=== PATIENT | female | born 1950 | race Caucasian/White ===

== ENCOUNTER 2022-12-20 18:37 | Inpatient (IN) | payer MEDICARE ==
[~2022-12-20] VITALS: Ht 160 cm; Wt 125.9 kg
[2022-12-20 18:40] VITALS: BP 117/88
--- NOTE | 2022-12-20 19:26 | NUR ---
to ct via [facility]
--- NOTE | 2022-12-20 19:26 | NUR ---
Pt report given to brigitte gee. Transfer of care at this time.
--- NOTE | 2022-12-20 19:27 | NUR ---
wound pictures taken, endorsed to brigitte gee and informed dr may
[2022-12-20 20:18] LABS: BASOPHILS % (AUTO) 0.1 % (0.0-2.0); EOSINOPHILS # (AUTO) 0.3 K/uL (0-0.4); EOSINOPHILS % (AUTO) 2.7 % (0.0-4.0); HEMATOCRIT 38.5 % (36-48); LYMPHOCYTES # (AUTO) 0.7 K/uL (2.5-16.5); LYMPHOCYTES % (AUTO) 6.4 % (20.5-51.1); MEAN CORPUSCULAR HEMOGLOBIN 30 pg (27-31); MEAN CORPUSCULAR HGB CONC 34 g/dL (33-37); MEAN CORPUSCULAR VOLUME 87.4 fL (80-94); MONOCYTES # (AUTO) 0.4 K/uL (0.8-1.0); MONOCYTES % (AUTO) 3.5 % (1.7-9.3); NEUTROPHILS # (AUTO) 10.1 K/uL (1.8-7.7); NEUTROPHILS % (AUTO) 87.3 % (42.2-75.2); PLATELET COUNT (AUTO) 202 K/uL (140-450); RED CELL DISTRIBUTION WIDTH 15.7 % (11.6-13.7); WHITE BLOOD COUNT (AUTO) 11.6 K/uL (4.8-10.8)
[2022-12-20] MEDS ORDERED: NACL 0.9% 1,000 ML IV ONE ×2 (20:35→23:10)
[2022-12-20 20:40] LABS: ANION GAP 18.3 (8-16); CARBON DIOXIDE 27.9 mmol/L (21-32); CHLORIDE 95 mmol/L (98-107); GLUCOSE 151 mg/dL (74-106); POTASSIUM 4.2 mmol/L (3.5-5.1); SODIUM SERUM 137 mmol/L (136-145)
[2022-12-20 20:44] LABS: CREATININE 5.9 mg/dL (0.6-1.3); UREA NITROGEN, BLOOD 137 mg/dL (7-18)
[2022-12-20 21:01] LABS: ALBUMIN 1.6 g/dL (3.4-5.0); ASPARTATE AMINOTRANSFERASE 33 U/L (15-37); FREE T4 (FREE THYROXINE) 0.54 ng/dL (0.76-1.46); THYROID STIMULATING HORMONE 9.41 uIU/mL (0.34-3.74); TOTAL BILIRUBIN 0.9 mg/dL (0.0-1.0)
[2022-12-20 21:07] LABS: ACETAMINOPHEN < 0.5 ug/ml (10-30)
--- NOTE | 2022-12-20 21:30 | NUR ---
STRAIGHT CATHED FOR UA, SENT TO LAB
[2022-12-20 21:46] LABS: BILIRUBIN,URINE 2+ (NEGATIVE); BLOOD, URINE 2+ (NEGATIVE); COLOR,URINE YELLOW (YELLOW); LEUKOCYTE ESTERASE ,URINE 2+ (NEGATIVE); NITRITE, URINE NEGATIVE (NEGATIVE); PH,URINE 5.5 (5.0-9.0); UGLUCOSE NEGATIVE (NEGATIVE)
[2022-12-20 21:47] LABS: CKMB RELATIVE INDEX 1.4 (0.0-2.5); CREATINE KINASE MB 6.9 ng/mL (0-3.6)
[2022-12-20 21:48] LABS: APPEARANCE,URINE HAZY (CLEAR)
[2022-12-20 21:53] LABS: RBC,URINE 0-5 /HPF (0-5); WBC,URINE TOO MANY TO COUNT /HPF (0-5)
[2022-12-20] MEDS ORDERED: cefTRIAXone 1,000 MG in DEXT 5% MINI-BAG PLUS 50 ML IV ONE (22:00)
[2022-12-20] MEDS ORDERED: cefTRIAXone 1,000 MG VIAL ONE (22:02)
[2022-12-20 22:16] LABS: BARBITURATE, URINE NEGATIVE ng/ml (NEG <=200); BENZODIAZEPINE, URINE NEGATIVE ng/mL (NEG <=200)
[2022-12-20 22:17] LABS: CANNABINOID, URINE NEGATIVE ng/mL (NEG <=50); COCAINE, URINE NEGATIVE ng/mL (NEG <=300); OPIATE, URINE NEGATIVE ng/mL (NEG <=2000); PHENCYCLIDINE SCREEN,URINE NEGATIVE ng/mL (NEG <=25)
[2022-12-21] VITALS (14 sets, daily range): BP systolic 60–156; BP diastolic 29–72
--- NOTE | 2022-12-21 01:00 | NUR ---
REPOSITIONED FOR COMFORT
--- NOTE | 2022-12-21 03:36 | NUR ---
REPORT CALLED TO MORGAN QUINN
--- NOTE | 2022-12-21 04:40 | NUR ---
TO [facility]ST VIA GURNEY, ATTACHED TO SANDWICH COUNTER ATTENDANT, ACCOMPANIED BY RETAIL MORTGAGE BANKER AND ERT
--- NOTE | 2022-12-21 05:03 | NUR ---
PT ARRIVED ON UNIT VIA GURNEY FROM ED TO ROOM 121A IN STABLE CONDITION (A+O*4, 3L O2 VIA NC, NO C/O PAIN). PT WAS ACCOMPANIED BY TWO HOSPITAL STAFF. PT REQUIRED ASSISTANCE W TRANSFER FROM GURNEY TO BED AND DID TOLERATE WELL. PT INSTRUCTED ON HOSPITAL PHONE AND NURSE/TV CONTROL BOX.
--- NOTE | 2022-12-21 07:45 | NUR ---
PATIENT NOTED TO BE SLOW TO RESPOND, WITH SHORTNESS OF BREATH, SKIN COLOR BLUISH COLD TO TOUCH. rESPONDS TO VERBAL STIMULI. BP78/43. [id number] R 15. NOTIFIED DR MORGAN NS BOLUS 1 LITER ORDERED AND STARTED. PATIENT CLOSELY MONITORED
[2022-12-21] MEDS ORDERED: NACL 0.9% 1,000 ML IV SCH ×3 (08:00→23:00)
--- NOTE | 2022-12-21 08:10 | NUR ---
BP 84/48 O2 SAT 925 O2 AT 3L/NC NS BOLUS ONGOING RESPONDS VERBALLY
[2022-12-21] MEDS ORDERED: AZITHROMYCIN 250 MG TAB PO SCH (09:00)
--- NOTE | 2022-12-21 09:32 | NUR ---
PT ALERT AND ABLE TO AGREE FOR AN UPDATE TO BE PROVIDED TO TRUDY HEREDIA, PTS NICOLE. PHONE NUMBER, . ALL QUESTIONS ANSWERED AT THIS TIME.
--- NOTE | 2022-12-21 10:07 | NUR ---
DR ROSS AND BRIELLE AT BEDSIDE, NEW BLOOD PRESSURE IS 86/36 MAP OF 56, RESPIRATORY RATE OF 24, DEEP ON 3L NC SATING AT 94%. NEW ORDERS FOR ICU TRANSFER, STAT ABG, AND PICC INSERTION. JASBIR MARTIN PLACED ORDERS.
--- NOTE | 2022-12-21 10:16 | NUR ---
PATIENT HAS BEEN SCREENED AND CATEGORIZED HIGH NUTRITION RISK. PATIENT WILL BE SEEN WITHIN 1-2 DA[address] OF [address]ION. [address]
[2022-12-21 10:22] LABS: BASOPHILS % (AUTO) 0.2 % (0.0-2.0); EOSINOPHILS # (AUTO) 0.1 K/uL (0-0.4); EOSINOPHILS % (AUTO) 0.9 % (0.0-4.0); HEMATOCRIT 34.7 % (36-48); HEMOGLOBIN 11.4 g/dL (12.0-16.0); LYMPHOCYTES # (AUTO) 0.8 K/uL (2.5-16.5); LYMPHOCYTES % (AUTO) 5.4 % (20.5-51.1); MEAN CORPUSCULAR HEMOGLOBIN 30 pg (27-31); MEAN CORPUSCULAR HGB CONC 33 g/dL (33-37); MEAN CORPUSCULAR VOLUME 90.9 fL (80-94); MONOCYTES # (AUTO) 0.7 K/uL (0.8-1.0); MONOCYTES % (AUTO) 4.4 % (1.7-9.3); NEUTROPHILS # (AUTO) 13.2 K/uL (1.8-7.7); NEUTROPHILS % (AUTO) 89.1 % (42.2-75.2); PLATELET COUNT (AUTO) 165 K/uL (140-450); RED BLOOD CELL COUNT(AUTO) 3.82 MIL/uL (4.20-5.40); RED CELL DISTRIBUTION WIDTH 16.2 % (11.6-13.7); WHITE BLOOD COUNT (AUTO) 14.8 K/uL (4.8-10.8)
[2022-12-21 10:33] LABS: ALBUMIN 1.8 g/dL (3.4-5.0); ANION GAP 18.5 (8-16); ASPARTATE AMINOTRANSFERASE 27 U/L (15-37); CARBON DIOXIDE 26.5 mmol/L (21-32); CHLORIDE 100 mmol/L (98-107); GLUCOSE 145 mg/dL (74-106); SODIUM SERUM 141 mmol/L (136-145)
[2022-12-21] MEDS ORDERED: NOREPINEPHRINE 4 MG/4 ML VIAL IV ONE (10:34)
[2022-12-21] MEDS ORDERED: NOREPINEPHRINE 4 MG in DEXTROSE 5% 250 ML IV PRN (10:35)
[2022-12-21] MEDS: NOREPINEPHRINE 16 MG in DEXTROSE 5% 250 ML IV PRN ×2 (10:35→15:20)
--- NOTE | 2022-12-21 10:37 | NUR ---
PT WAS TRANSFERRED TO ICU BED 5, FULL REPORT GIVEN TO MIKE MORA. PT HAS NO BELONGINGS, STATES SHE DID NOT BRING ANYTHING FROM HOME. PTS NIECE, TRUDY HAS BEEN CALLED AND UPDATED REGARDING TRANSFER.
[2022-12-21 10:38] LABS: CREATININE 5.6 mg/dL (0.6-1.3); UREA NITROGEN, BLOOD 145 mg/dL (7-18)
--- NOTE | 2022-12-21 10:38 | NUR ---
RECEIVED REPORT FROM OFFICIAL COURT INTERPRETER [place], FOR CONTINUITY OF CARE. PT A/OX4 AND ABLE TO COMMUNICATE NEEDS, 4L NC. 20G IV TO RAC SALINE LOCK. WEAKNESS THROUGHOUT. INCONTINENT OF BLADDER. STANDARD PRECAUTION. CALL LIGHT WITHIN REACH. BED LOCKED AND IN LOWEST POSITION.
--- NOTE | 2022-12-21 11:00 | NUR ---
RECEIVED PHONE CALL FROM SISTER IN LAW AYAD CHAYO [phone] AND UPDATED ON POC.
--- NOTE | 2022-12-21 11:15 | NUR ---
PHONE CALL TO DR CHAVIRA TO UPDATE ON PT. ORDERS RECEIVED. OK FOR PICC INSERTION.
[2022-12-21 11:55] LABS: PROTHROMBIN TIME 14.2 secs (10.8-13.4)
[2022-12-21 12:00] LABS: CREATININE 5.5 mg/dL (0.6-1.3)
[2022-12-21] MEDS ORDERED: VASOPRESSIN 20 UNITS in NACL 0.9% 250 ML IV SCH (13:05)
--- NOTE | 2022-12-21 13:26 | NUR ---
12/21/22 RD INITIAL ASSESSMENT COMPLETED PLEASE REFER TO NUTRITION ASSESSMENT UNDER CARE ACTIVITY FOR ESTIMATED NUTRITIONAL NEEDS. 1. MONITOR NPO STATUS 2. WHEN/IF MEDICALLY APPROPRIATE TO START PO DIET, RECOMMEND RENAL, [id number] DIET WITH LUANA BID PER RX PROTOCOL 3. MONITOR NUTRITION-RELATED LAB VALUES 4. CONSULT RD PRN 5. RD TO FOLLOW-UP 2-3 DAYS, HIGH RISK [address]
--- NOTE | 2022-12-21 13:30 | NUR ---
INSERTED 16FR CARIAS CATHETER WITH STERILE TECHNIQUE. IMMEDIATE RETURN OF CLOUDY YELLOW URINE.
--- NOTE | 2022-12-21 13:40 | NUR ---
PICC MORGAN PERDOMO AT BEDSIDE. INSERTED PICC TO [facility] AND CONFIRMED BY XRAY, OK TO USE PICC.
--- NOTE | 2022-12-21 13:54 | NUR ---
PT A/OX4, REFUSES TO CONSENT TO THORACENTESIS. EDUCATED ON RISKS AND BENEFITS. OFFERED EDUCATION/CLARIFICATION FROM MD. PT REFUSED. MD NOTIFIED. NO NEW ORDERS AT THIS TIME.
[2022-12-21] MEDS: PIPERACILLIN/TAZOBACTAM 2.25 GM in DEXTROSE 5% 50 ML IV SCH ×2 (14:05→21:37)
[2022-12-21 14:44] LABS: APPEARANCE,URINE CLOUDY (CLEAR); BILIRUBIN,URINE 1+ (NEGATIVE); BLOOD, URINE 3+ (NEGATIVE); COLOR,URINE YELLOW (YELLOW); LEUKOCYTE ESTERASE ,URINE 3+ (NEGATIVE); NITRITE, URINE NEGATIVE (NEGATIVE); UGLUCOSE NEGATIVE (NEGATIVE)
--- NOTE | 2022-12-21 15:00 | NUR ---
HAI VISITING AT BEDSIDE. STATES SHE IS "LIKE A DAUGHTER". WHEN DISCUSSING POINT OF CONTACT FOR MEDICAL DECISION MAKING, PT STATED SHE WOULD LIKE AYAD TO BE PERSON TO NOTIFY AND MAKE DECISIONS.
[2022-12-21 15:03] LABS: RBC,URINE TOO NUMEROUS TO COUN /HPF (0-5)
[2022-12-21 15:04] LABS: TRICHOMONAS,URINE None Seen /HPF (None Seen); WBC,URINE TOO MANY TO COUNT /HPF (0-5); YEAST,URINE None Seen /HPF (None Seen)
[2022-12-21] MEDS ORDERED: VASOPRESSIN 20 UNITS/ML VIAL ONE (15:54)
[2022-12-21] MEDS: VASOPRESSIN 20 UNITS in NACL 0.9% 250 ML IV SCH (16:04)
[2022-12-21] MEDS ORDERED: PHENYLEPHRINE 10 MG in NACL 0.9% 250 ML IV PRN (16:50)
--- NOTE | 2022-12-21 19:30 | NUR ---
ENDORSED BEDSIDE REPORT TO GONZALO, DATA PROCESSING CLERK RN, FOR CONTINUITY OF CARE.
[2022-12-21] MEDS: HYDROCORTISONE NA SUCC 100 MG/2 ML VIAL IV SCH (21:37)
--- NOTE | 2022-12-21 22:10 | NUR ---
DR ROSS CONTACTED TO REPORT MAXED OUT LEVO A ND VASO FOR A POSSIBLE FLUID CHALLENGE BASE EXCESS IS -7.9. HE AGREED AND ORDERED 1 LITER NS
[2022-12-21] MEDS ORDERED: PHENYLEPHRINE 10 MG/ML VIAL ONE (22:35)
[2022-12-22] VITALS (28 sets, daily range): BP systolic 80–144; BP diastolic 44–91
[2022-12-22] MEDS: NACL 0.9% 1,000 ML IV SCH ×3 (00:10→02:12)
[2022-12-22] MEDS ORDERED: PHENYLEPHRINE 10 MG/ML VIAL ONE ×2 (02:42→05:01)
[2022-12-22] MEDS: VASOPRESSIN 20 UNITS in NACL 0.9% 250 ML IV SCH ×2 (02:57→18:13)
[2022-12-22] MEDS: PIPERACILLIN/TAZOBACTAM 2.25 GM in DEXTROSE 5% 50 ML IV SCH ×3 (05:00→21:33)
[2022-12-22] MEDS: HYDROCORTISONE NA SUCC 100 MG/2 ML VIAL IV SCH ×3 (05:00→21:33)
--- NOTE | 2022-12-22 07:00 | NUR ---
Recieved report from MORGAN Yeboah. Patient resting in bed with eyes closed Bipap present; RR 26, VT 344, PIP 11, VE 8.3, Peep 8, O2 55%. Patient appears to have irregular and labored breathing, currently saturating at 97%. Lung sounds diminished bilaterally. Patient is currently ST; S1 and S2 auscultated. Pulses +1 BUE/BUE. Cap refill <2 BUE, >2 BLE dusky color noted to right toes, pressure reducing boot strap loosened. +4 pitting edema to the BLE, +3 non pitting to BUE. Skin tear to left FA noted near edge of BP cuff. Bowel sounds hypoactive. all quadrants. Mazariegos catheter draining dark yellow cloudy urine. PICC line to right upper arm infusing without issue. Junior-synephrine running at 50mcg/min, Levophed running at 22mcg/min, vasopressin running at 0.03units/min through central line. RT and x3 nurses, x1 SENIOR TECHNICAL MANAGER moved pt bed to room 7 d/t malfunctioning monitoring equipment. Will continue to monitor.
--- NOTE | 2022-12-22 07:34 | NUR ---
WAS HAVING CONNECTION ISSUES WITH HEART MONITOR AND BP SO I HAD TO CONNECT PATIENT TO ZOLL MONITOR FOR HEART MONITOR READING AND BP READING. ACCOUNTS CLERK WAS MADE AWARE
[2022-12-22] MEDS ORDERED: PHENYLEPHRINE 40 MG in NACL 0.9% 250 ML IV PRN (08:30)
[2022-12-22] MEDS: AZITHROMYCIN 500 MG in DEXTROSE 5% 250 ML IV SCH (09:02)
--- NOTE | 2022-12-22 09:22 | NUR ---
Received patient in ICU bed 5 on BIPAP 12/8 R18 55%, SPO2 97%. No respiratory distress noted at this time. Patient awake. Patient was transported on BIPAP to ICU bed 7 on BIPAP, no adverse events occurred. ABG results given to MD Joy in person. New BIPAP orders given, keep patient on BIPAP and increase to 18/8. Will continue to monitor.
--- NOTE | 2022-12-22 09:25 | NUR ---
here to see pt. New orders given. See orders for detail. Orders noted and carried out.
[2022-12-22 09:26] LABS: BASOPHILS % (AUTO) 0.1 % (0.0-2.0); HEMATOCRIT 36.4 % (36-48); LYMPHOCYTES # (AUTO) 0.3 K/uL (2.5-16.5); LYMPHOCYTES % (AUTO) 1.5 % (20.5-51.1); MEAN CORPUSCULAR HEMOGLOBIN 30 pg (27-31); MEAN CORPUSCULAR HGB CONC 33 g/dL (33-37); MEAN CORPUSCULAR VOLUME 89.4 fL (80-94); MONOCYTES # (AUTO) 0.4 K/uL (0.8-1.0); MONOCYTES % (AUTO) 2.5 % (1.7-9.3); NEUTROPHILS # (AUTO) 16.5 K/uL (1.8-7.7); NEUTROPHILS % (AUTO) 95.9 % (42.2-75.2); PLATELET COUNT (AUTO) 203 K/uL (140-450); RED BLOOD CELL COUNT(AUTO) 4.07 MIL/uL (4.20-5.40); RED CELL DISTRIBUTION WIDTH 16.1 % (11.6-13.7); WHITE BLOOD COUNT (AUTO) 17.2 K/uL (4.8-10.8)
[2022-12-22 09:28] LABS: CARBON DIOXIDE 20.5 mmol/L (21-32); CHLORIDE 100 mmol/L (98-107); GLUCOSE 240 mg/dL (74-106); POTASSIUM 4.5 mmol/L (3.5-5.1); SODIUM SERUM 141 mmol/L (136-145)
[2022-12-22] MEDS: SODIUM BICARBONATE 8.4% PFS 50 MEQ/50 ML SYR IVP SCH ×2 (09:31→10:41)
[2022-12-22 09:33] LABS: CREATININE 5.5 mg/dL (0.6-1.3); UREA NITROGEN, BLOOD 127 mg/dL (7-18)
[2022-12-22 09:34] LABS: MAGNESIUM 2.2 mg/dL (1.8-2.4)
[2022-12-22] MEDS: SODIUM BICARBONATE 8.4% 150 MEQ in DEXTROSE 5% 1,000 ML IV SCH (10:38)
[2022-12-22] MEDS: BLOOD GLUCOSE MONITORING 1 DEV DEV FS SCH ×2 (12:02→18:14)
[2022-12-22] MEDS: INSULIN LISPRO SLIDING SCALE 100 UNITS/ML VIAL SUBQ PRN ×2 (12:09→18:13)
[2022-12-22] MEDS ORDERED: NOREPINEPHRINE 4 MG/4 ML VIAL IV ONE (13:21)
[2022-12-22] MEDS: NOREPINEPHRINE 16 MG in DEXTROSE 5% 250 ML IV PRN (13:35)
--- NOTE | 2022-12-22 17:30 | NUR ---
PATIENT STATES THAT SHE IS UNSURE OF DIALYSIS AND DOESN'T KNOW IF SHE WANTS DIALYSIS. DR. CHAVIRA SPOKE WITH PATIENT AND EXPLAINED RISKS AND BENEFITS OF DIALYSIS. PT REMAINS UNSURE AT THIS TIME.
--- NOTE | 2022-12-22 18:00 | NUR ---
PT CONTINUES TO STATE THAT SHE IS UNSURE IF SHE WOULD LIKE TO UNDERGO DIALYSIS [place].
--- NOTE | 2022-12-22 19:25 | NUR ---
notified of TSH results. New orders given. See orders for detail. Orders noted and carried out.
--- NOTE | 2022-12-22 19:30 | NUR ---
Report endorsed to MORGAN Camp.
--- NOTE | 2022-12-22 20:00 | NUR ---
PATIENT STABLE VITALS SIGNS IN NORMAL LIMITS DEVAN ON BIPAP AT 40 % FIO2 ORAL CARE WAS PERFORMED PATIENT TURN TO THE RIGHT SIDE
--- NOTE | 2022-12-22 20:05 | NUR ---
1900 LOWERED FIO2 TO 40% ON BIPAP
[2022-12-23] VITALS (28 sets, daily range): BP systolic 90–132; BP diastolic 40–70
--- NOTE | 2022-12-23 | NUR ---
PATIENT STABLE VITALS SIGNS IN NORMAL LIMITS ALERT SEEMS LIKE CONFUSED SR 76 ON MONITOR BATH AND BED CHANGE WAS DONE PATIENT TOLERATE THE CARE FAIR
[2022-12-23] MEDS: INSULIN LISPRO SLIDING SCALE 100 UNITS/ML VIAL SUBQ PRN ×4 (01:34→18:44)
[2022-12-23] MEDS: SODIUM BICARBONATE 8.4% 150 MEQ in DEXTROSE 5% 1,000 ML IV SCH ×2 (02:15→17:35)
--- NOTE | 2022-12-23 03:23 | NUR ---
0320 PATIENT WANTED OFF BIPAP. TOOK OFF BIPAP AND PLACED PT ON 3LNC. WILL MONITOR PATIENT
[2022-12-23] MEDS: PIPERACILLIN/TAZOBACTAM 2.25 GM in DEXTROSE 5% 50 ML IV SCH ×3 (05:25→22:36)
[2022-12-23] MEDS: HYDROCORTISONE NA SUCC 100 MG/2 ML VIAL IV SCH ×3 (05:25→22:35)
[2022-12-23] MEDS: BLOOD GLUCOSE MONITORING 1 DEV DEV FS SCH ×4 (06:22→18:43)
[2022-12-23] MEDS: LEVOTHYROXINE SODIUM 100 MCG VIAL IV SCH ×2 (06:23→07:03)
--- NOTE | 2022-12-23 06:35 | NUR ---
PATIENT STABLE VITALS SIGNS IN NORMAL LIMITS NOT COMPLAINING OF PAIN AT THIS TIME SR 78 ON MONITOR BED CHANGE AND PATIENT CLEAN PERFORMED PATIENT TOOK OFF OF BIPAP BY RESPIRATORY THERAPY DING WELL AND STABLE
--- NOTE | 2022-12-23 06:45 | NUR ---
WE DONT HAVE LEVOTHYROXINE IV I CHECK WITH GUNJAN WHELAN AND NATALIE IN ER BUT WE COULDNT FIND IT
[2022-12-23] MEDS: PANTOPRAZOLE 40 MG INJ VIAL IVP SCH (09:00)
[2022-12-23] MEDS: AZITHROMYCIN 500 MG in DEXTROSE 5% 250 ML IV SCH (09:00)
[2022-12-23] MEDS: NOREPINEPHRINE 16 MG in DEXTROSE 5% 250 ML IV PRN ×2 (10:13→22:43)
[2022-12-23 11:37] LABS: BASOPHILS % (AUTO) 0.1 % (0.0-2.0); EOSINOPHILS % (AUTO) 0.2 % (0.0-4.0); HEMATOCRIT 32.6 % (36-48); HEMOGLOBIN 10.6 g/dL (12.0-16.0); LYMPHOCYTES # (AUTO) 0.6 K/uL (2.5-16.5); LYMPHOCYTES % (AUTO) 2.9 % (20.5-51.1); MEAN CORPUSCULAR HEMOGLOBIN 30 pg (27-31); MEAN CORPUSCULAR HGB CONC 33 g/dL (33-37); MEAN CORPUSCULAR VOLUME 91.3 fL (80-94); MONOCYTES # (AUTO) 0.6 K/uL (0.8-1.0); MONOCYTES % (AUTO) 2.9 % (1.7-9.3); NEUTROPHILS # (AUTO) 18.2 K/uL (1.8-7.7); NEUTROPHILS % (AUTO) 93.9 % (42.2-75.2); PLATELET COUNT (AUTO) 149 K/uL (140-450); RED BLOOD CELL COUNT(AUTO) 3.57 MIL/uL (4.20-5.40); RED CELL DISTRIBUTION WIDTH 16.3 % (11.6-13.7); WHITE BLOOD COUNT (AUTO) 19.4 K/uL (4.8-10.8)
[2022-12-23 12:09] LABS: ANION GAP 13.5 (8-16); CARBON DIOXIDE 30.3 mmol/L (21-32); CHLORIDE 98 mmol/L (98-107); GLUCOSE 310 mg/dL (74-106); POTASSIUM 3.8 mmol/L (3.5-5.1); SODIUM SERUM 138 mmol/L (136-145)
[2022-12-23 12:11] LABS: UREA NITROGEN, BLOOD 129 mg/dL (7-18)
--- NOTE | 2022-12-23 12:21 | NUR ---
DC PLANN[age] YRS OLD FEMALE PATIENT WAS ADMITTED FROM HOME WITH A DX OF ACUTE RESPIRATORY FAILURE SECONDARY RHABDOMYOLYSIS, UTI AND FRAN. PATIENT HAS A HX OF COPD, DM AND HYPOTHYROIDISM CXR SHOWED MODERATE RT PLEURAL EFFUSION. RAPID COVID TEST NEGATIVE. ON BIPAP FIO2 40% . ADMINISTERED IVF, SODIUM BICARB AN LEVOPHED DRIP. CONSULTED WITH PULMO, NEPHRO AND ID. DC PLAN PER PATIENT RESPOND TO THE TREATMENT. CM TO FOLLOW Addendum: 12/24/22 at 1244 by Faye Stevenson RN DC PLANNING: PER ICU NURSE DR ANDERSON SPOKE WITH PATIENT AND AGREED TO PROCEED WITH THORACENTESIS. DR EDWARDS ORDERED CONSENT FOR SACRAL DEBRIDEMENT. CM TO FOLLOW Addendum: 12/26/22 at 1246 by Faye Stevenson RN DC PLANNING: DR EDWARDS PERFORMED EXCISIONAL SACRAL DEBRIDEMENT ON 12/24 . S/P INTUBATION PENDING CHEST TUBE PLACEMENT BY SURGEON DR EDWARDS. ON PROPOFOL AND SODIUM BICARB DRIPS. CONTINUED IVF, IV ABX ZOSYN AND AZITHROMYCIN. NEPHRO ,ID, SURGEON AND PULMO ARE FOLLOWING. CM TO FOLLOW
[2022-12-23] MEDS: NYSTATIN POW 100 MU/GM 15 GM BTL TP SCH (13:00)
[2022-12-23] MEDS: HYDRAGUARD CREAM TP SCH (13:00)
[2022-12-23] MEDS: Z-GUARD PASTE TP SCH (13:00)
[2022-12-23] MEDS: THERAHONEY GEL 42.5 GM TP SCH (13:00)
--- NOTE | 2022-12-23 13:50 | NUR ---
WOUND CARE EVALUATION NOTE: SKIN ASSESSMENT DONE WITH PRIMARY RN HAILEY ON THIS 72 Y/O PT ADMITTED WITH INITIAL DX WEAKNESS, S/P FALL. PAST MEDICAL HX INCLUDES HX COPD, DM AND HYPOTHYROIDISM. PT ADMITTED WITH PRESSURE INJURIES. ALL ABOVE INFORMATION OBTAINED FROM ADMISSION H&P AND CHART REVIEW. PT IS AWAKE, RESPONSE TO HER NAME WHEN NAME WAS CALLED, SKIN IS WARM, MOIST AND THIN, EASILY TO TORN, BILATERAL LOWER EXTREMITY ELEPHANTIASIS LEGS WITH +3 EDEMA. DORSAL PEDAL PULSES PRESENT AND DIMINISHES. CAPILLARY REFILLED UNABLE TO ASSESS DUE CHRONIC FUNGAL NAILS X 10 TOES. F/C PATENT WITH MODERATE AMOUNT ERNA COLOR URINE OUT PUT OBSERVED. WOUND CX OBTAINED. PLAN OF CARE DISCUSSED WITH PRIMARY RN SERGIO AND CHARGE NURSE VEL. POC DISCUSSED WITH DR. DEE WITH SURGEON DEBRIDEMENT RECOMMENDATIONS. 12/22/2022 LABS: WBC 17.2, ALBUMIN 1.8, GLUCOSE 240, PT/INR 14.2/1.38 COMORBIDITIES RELATED TO DELAY WOUND HEALING, FURTHER SKIN BREAKS AND UN-AVOIDABLE PRESSURE INJURY: ADVANCE AGE, INFECTION, DM, SEVERELY OBESE, ACUTE HYPOXEMIC DECREASE TISSUE PERFUSION, TISSUE ISCHEMA, DECREASE MOBILITY AND FUNCTIONAL ABILITIES, AND HOB ELEVATED THE MAJORITY OF TIMES DUE TO MEDICAL REASONS. INTEGUMENTARY: -LIPS AND ORAL MUCOSA DRY AND CLEAN. SKIN INTACT. -UN-STAGEABLE PRESSURE INJURY TO LEFT EAR WITH BLOODY INTACT BLISTERING DENUDED SKIN 2.5X1CM -UPPER EXTREMITIES WITH MULTIPLE ECCHYMOSIS WITH LARGEST FROM LEFT FOREARM TO RIGHT FOREARM 10X4CM ERYTHEMA, SKIN INTACT AND LEFT FOREARM TO DORSAL HAND 23X8CM WITH +2 EDEMA, MULTIPLE RED STRIPES DOROTEO POSSIBLE FROM BLOOD PRESSURE CUFF. CUFF REMOVED TO LOWER EXTREMITIES -LEFT SHOULDER 2 SKIN TEARS SITE #1 WOUND BED RED AND MOIST WITH 2X1.5X0.2CM, NO ODOR, NO S/S OF INFECTION AND SITE #2 WOUND BED RED AND MOIST WITH 2X1.5X0.2CM, NO ODOR, NO S/S OF INFECTION AND CHARU WOUND SKIN ECCHYMOSIS -INTERTRIGO TO UNDER BREASTS FOLDS AND ABDOMINAL FOLDS, SKIN RED, MOIST MULTIPLE SUPERFICIAL EROSIONS -MOISTURE ASSOCIATED SKIN DAMAGE(MASD) TO: B/L GROINS, MEDIAL THIGHS AND POSTERIOR THIGHS TO CHARU-ANAL, SKIN REDNESS, MOIST, PEELING -PRESSURE INJURY UN-STAGEABLE THORACIS SPINAL AREA MULTIPLE BLISTERING SKIN WITH LARGEST BLOODY BLISTERING SKIN 3X5CM, CHARU-WOUND SKIN ECCHYMOSIS -PRESSURE INJURY UN-STAGEABLE, SACROCOCCYX EXTENDED TO LEFT AND RIGHT BUTTOCKS INFECTED WOUND WITH 07P09O0.3CM, WOUND BED MORE THAN 20% DEEP TISSUE INJURY, GREATER THAN 75% BLACK, BROWN, YELLOW SLOUGH AND DENUDED INFECTED TISSUE, MODERATE AMOUNT PURULENT DRAINAGE, STRONG ODOR, WOUND EDGE FLAT, IRREGULAR SHAPE, CHARU-WOUND DENUDED SKIN MOIST YELLOW SLOUGH WITH NON-BLANCHABLE REDNESS WHICH INDICATED FURTHER DAMAGE -LEFT LE CELLULITIS 15X6CM ERYTHEMA, +3 EDEMA, WITH A DRY ABRASION, CHARU-WOUND SKIN DRY INTACT. -RIGHT LE CELLULITIS 14X6CM ERYTHEMA, +3 EDEMA, CHARU-WOUND SKIN DRY INTACT. -BILATERAL HEELS BLANCHABLE REDNESS, HEEL PROTECTORS WITH OFFLOADING RECOMMENDATIONS: -APPLY SKIN PREP WIPE TO LEFT EAT BID WITH OFFLOADING -LUMBAR SPINAL BLISTERING SKIN, CLEAN WITH NS, PAT DRY, APPLY OIL EMULSION DRESSING COVER WITH DRY DRESSING QD AND PRN IF SOILING -APPLY THIN LAYER OF Z GUARD TO R/L GROINS EXTENDED TO PERINEUM MEDIAL THIGHS, POSTERIOR THIGHS AND CHARU ANAL BID AND PRN IF SOILING -APPLY NYSTATIN POWDER TO BREAST FOLDS AND LOWER ABDOMINAL FOLDS BID AND PRN IF SOILING -CLEANSE LEFT SHOULDER WOUNDS, SACRALCOCCYX AND BUTTOCKS WITH WOUND CARE SOLUTION, PAT DRY, APPLY THERAHONEY GEL WITH OIL EMULSION DRESSING, COVER WITH DRY DRESSING QD AND PRN IF SOILING -PRESSURE REDISTRIBUTION SURFACE THERAPY OSMIN ISOFLEX NADINE MATTRESS -POSITIONING: TURN AND REPOSITION PATIENT Q 2H OR SOONER USE PILLOWS TO KEEP BONY PROMINENCES FROM DIRECT CONTACT WITH SURFACES USE REPOSITIONING WEDGES TO PROVIDE 30-DEGREE ANGLE FOR SIDE LYING POSITIONS OFFLOADING OR FOAM DRESSING TO ALL TUBING TO PREVENT MEDICAL DEVICES RELATED PRESSURE INJURY -RE-EVALUATING AND MANAGING INCONTINENCE MONITOR SKIN CONDITION DURING POSITION CHANGE DO NOT MASSAGE REDNESS, BONY PROMINENCES, DO NOT USE DONUT-TYPE DEVICES FREQUENT CHARU-CARE AND PROVIDE BARRIER CREAMS PRN IF SOILING MOISTURE CONTROL BY OFFER BED LYNN/URINAL /ABSORBENT PAD TO WICK AND HOLD MOISTURE. KEEP SKIN DRY AND PROTECT FROM FRICTION -MANAGE FRICTION/SHEAR/MOBILITY KEEP HOB AT THE LOWEST LEVEL OF ELEVATION NO MORE THAN 30 DEGREES UNLESS OTHERWISE CONTRAINDICATED USE LIFT SHEET OR TRANSFER DEVICE TO MOVE PATIENT AND PREVENT LATERAL SHEER. CONSIDER TRAPEZE IF APPROPRIATE PROTECT HEELS, ELBOWS BONY PROMINENCES WITH SKIN BERRIES OR FOAM DRESSING IF EXPOSED TO FRICTION OFFLOAD BILATERAL HEELS BY PLACING PILLOWS UNDER CALVES AT ALL TIMES, UNLESS OTHERWISE CONTRAINDICATED -NUTRITION: PLEASE FOLLOW RD RECOMMENDATIONS AND OFFER NUTRITION SUPPLEMENTS IF ORDERED. PLEASE CONTACT WOUND CARE NURSE FOR ANY QUESTION AND CHANGE OF WOUND CONDITION.
[2022-12-23] MEDS ORDERED: VANCOMYCIN PER PHARMACY MC PRN (18:05)
[2022-12-23] MEDS ORDERED: VANCOMYCIN 1.25GM PREMIX 250 ML IV SCH (18:30)
--- NOTE | 2022-12-23 19:30 | NUR ---
PT WAS GETTING LARGE VOLUMES AND INCREASED PEAK PRESSURES ON BIPAP SETTINGS 18/8 WITH A SPO2 OF 92%. TITRATED PT IPAP FROM 18 TO 12 AND EPAP FROM 8 TO 5. PT VOLUMES NORMALIZED, PEAK PRESSURES DECREASED AND SPO2 IMPROVED TO 96%. WILL CONTINUE TO MONITOR PT.
--- NOTE | 2022-12-23 19:32 | NUR ---
Change of shift report received from AM RN, met pt awake to her name eyes open spontaneously, nods her head to answer question, SR on the monitor, low blood pressure ongoing Levophed drip vitals WNL, airway oxygenation with BIPAP- IPAP 12 EPAP 5 RATE 10 FIO2 40% O2 SAT 97% , generalized weakness noted weak extremities movement, multiple dry skin and breakdown. Tessa yellow urine via marin Catheter, will continue to monitor and treat as per care plan.
--- NOTE | 2022-12-23 20:30 | NUR ---
Dr ORLANDO EDWARDS came to the bedside as consult for the wound debridment, assess the wound on the sacral/ coccyx area. Order received to get consent for SACCROCOCCYX DECUBUTUS GANGRENE NECROTIZING FACITIS DEBRIDEMENT. But there is no responsible republican to sign consent for the patient also notified
--- NOTE | 2022-12-23 22:27 | NUR ---
Called pt's family to clarify if there is any family chosen or willing to be responsible for patient but as she said no that no one is willing to get involve in pt's care or make decision on pt's behalf.
[2022-12-24] VITALS (27 sets, daily range): BP systolic 84–123; BP diastolic 35–76
[2022-12-24] MEDS: BLOOD GLUCOSE MONITORING 1 DEV DEV FS SCH ×5 (00:12→23:51)
[2022-12-24] MEDS: INSULIN LISPRO SLIDING SCALE 100 UNITS/ML VIAL SUBQ PRN ×5 (00:20→23:55)
[2022-12-24] MEDS: Z-GUARD PASTE TP SCH ×2 (00:23→13:00)
[2022-12-24] MEDS: HYDRAGUARD CREAM TP SCH ×2 (00:23→13:00)
[2022-12-24] MEDS: NYSTATIN POW 100 MU/GM 15 GM BTL TP SCH ×2 (00:24→13:00)
[2022-12-24] MEDS: HYDROCORTISONE NA SUCC 100 MG/2 ML VIAL IV SCH ×3 (05:33→20:19)
[2022-12-24] MEDS: PIPERACILLIN/TAZOBACTAM 2.25 GM in DEXTROSE 5% 50 ML IV SCH ×3 (05:33→20:20)
[2022-12-24] MEDS: LEVOTHYROXINE SODIUM 100 MCG VIAL IV SCH ×2 (05:55→08:00)
--- NOTE | 2022-12-24 07:15 | NUR ---
Change of shift report given to GRACIE RN fo continuity of care as at this time no changes in pt's condition and care plan.
--- NOTE | 2022-12-24 07:15 | NUR ---
RECEIVED PT ON V60 BIPAP. SETTINGS 14/5, 40%. SATURATION 95%. PT TOLERATING BIPAP. BREATH SOUNDS WERE COARSE WITH A EXPIRATORY WHEEZE. ORDERED ALBUTEROL/ATROVENT Q6 PRN. WILL CONTINUE TO MONITOR.
[2022-12-24] MEDS ORDERED: ALBUTEROL 0.083% 2.5 MG/3 ML NEBU INH PRN (07:40)
--- NOTE | 2022-12-24 08:40 | NUR ---
DC PLANNING ASSESSMENT COMPLETE PLEASE REFER TO ASSESSMENT FOR DETAILS SW TO CONTINUE TO MAKE EFFORTS IN REACHING PTS CLOSEST BLOOD RELATIVE, TRUDY, TO INQUIRE/ AID IN DECISION MAKING Addendum: 12/24/22 at 1045 by Erick Carter SS PT IS A 72 YR OLD FEMALE ADMITTED TO [facility] FROM HOME WITH DX OF ACUTE RESP FAILURE. PT HAS PAST MEDICAL HX OF COPD, DM AND HYPOTHYROIDISM. PT IS REPORTED TO BE AND HAVE LIMITED ACTIVE FAMILY INVOLVEMENT. PER AYAD, PT HAS BEEN SINCE 1999' AND NEVER HAD CHILDREN. AYAD REPORTS REACHING OUT TO PTS CLOSEST LIVING RELATIVE TO AID IN DECISION MAKING HOWEVER, REPORTS RELATIVES REFUSED TO BE MDM. AYAD REPORTS BEING ACTIVE IN PTS LIFE HOWEVER REPORTS PT BECAME "HERMIT LIKE" WITHIN THE LAST SEVERAL MONTHS. FAMILY WAS REPORTED NOT TO BE ALLOWED INTO THE PTS HOME. AYAD REPORTS BEING UNAWARE OF PTS LIVING CONDITIONS THEREFORE APS REPORT MADE TO REPORT CONCERNS. . Addendum: 12/26/22 at 1511 by Erick Carter SS OUTREACHED TO LANETTE YATES NIECE [phone] TO INQUIRE ON DECISION MAKING OF CLOSEST BLOOD RELATIVE. TRUDY REPORTS PT'S NIECE, MAYNOR HAS BEEN IN CONTACT WITH HOSPITAL STAFF AND HAS PROVIDED MEDICAL CONSENTS FOR PROCEDURES. TRUDY REPORTS PT HAS A NEPHEW, MAKI DOMINGUEZ WHO RESIDES IN THE AREA AND IS IN TOUCH WITH HIS SISTER MAYNOR WHO HAS PROVIDED CONSENTS. TRUDY DID NOT HAVE CONTACT INFO FOR MAYNOR OR MAKI HOWEVER SHE REPORTS SHE WILL PROVIDED MAYNOR WITH SW CONTACT INFO, VIA [employer].
[2022-12-24] MEDS: SODIUM BICARBONATE 8.4% 150 MEQ in DEXTROSE 5% 1,000 ML IV SCH (08:55)
[2022-12-24] MEDS: AZITHROMYCIN 500 MG in DEXTROSE 5% 250 ML IV SCH (09:00)
[2022-12-24] MEDS: PANTOPRAZOLE 40 MG INJ VIAL IVP SCH (09:00)
[2022-12-24 09:26] LABS: BASOPHILS % (AUTO) 0.2 % (0.0-2.0); HEMATOCRIT 34.5 % (36-48); HEMOGLOBIN 11.1 g/dL (12.0-16.0); LYMPHOCYTES # (AUTO) 0.4 K/uL (2.5-16.5); MEAN CORPUSCULAR HEMOGLOBIN 29 pg (27-31); MEAN CORPUSCULAR HGB CONC 32 g/dL (33-37); MONOCYTES # (AUTO) 0.4 K/uL (0.8-1.0); NEUTROPHILS # (AUTO) 20.6 K/uL (1.8-7.7); NEUTROPHILS % (AUTO) 95.8 % (42.2-75.2); PLATELET COUNT (AUTO) 140 K/uL (140-450); RED BLOOD CELL COUNT(AUTO) 3.79 MIL/uL (4.20-5.40); RED CELL DISTRIBUTION WIDTH 16.4 % (11.6-13.7); WHITE BLOOD COUNT (AUTO) 21.4 K/uL (4.8-10.8)
[2022-12-24 10:03] LABS: ANION GAP 13.8 (8-16); CHLORIDE 95 mmol/L (98-107); GLUCOSE 185 mg/dL (74-106); POTASSIUM 3.8 mmol/L (3.5-5.1); SODIUM SERUM 138 mmol/L (136-145)
--- NOTE | 2022-12-24 10:10 | NUR ---
ABG ORDERED, ON HOLD TILL DIALYSIS IS FINISHED. WILL CONTINUE TO MONITOR.
[2022-12-24 10:22] LABS: CREATININE 4.9 mg/dL (0.6-1.3); UREA NITROGEN, BLOOD 124 mg/dL (7-18)
[2022-12-24] MEDS ORDERED: KETAMINE 500 MG/5 ML VIAL ONE ×2 (12:00→22:07)
[2022-12-24] MEDS ORDERED: fentaNYL citrate 0.05 MG/ML - 50mL vial IV ONE (12:00)
[2022-12-24] MEDS ORDERED: PROPOFOL 200 MG/20 ML VIAL IV ONE ×2 (12:00→23:03)
[2022-12-24] MEDS ORDERED: MIDAZOLAM 2 MG/2 ML VIAL ONE ×2 (12:00→22:04)
[2022-12-24] MEDS: THERAHONEY GEL 42.5 GM TP SCH (13:00)
--- NOTE | 2022-12-24 15:25 | NUR ---
12/24/22 RD FOLLOW UP COMPLETED PLEASE REFER TO NUTRITION ASSESSMENT UNDER CARE ACTIVITY FOR ESTIMATED NUTRITIONAL NEEDS. 1. MONITOR NPO STATUS 2. WHEN/IF MEDICALLY APPROPRIATE TO START PO DIET, RECOMMEND RENAL, [id number] DIET WITH TEXTURE MODIFICATIONS PER ST SWALLOW EVAL RECOMMENDATIONS 3. RECOMMEND LUANA BID PER RX PROTOCOL - PROVIDES 160 KCAL, 5 GM PROTEIN DAILY 4. WHEN/IF MEDICALLY APPROPRIATE TO START TF, RECOMMEND NEPRO CARBSTEADY 1.8 AT GOAL RATE 35 ML/HR, FWF 50 ML Q6H OR PER MD TOLERATED, WITH LUANA BID PER RX PROTOCOL - PROVIDES 840 ML TOTAL VOLUME, 1512 KCAL, 68 GM PROTEIN AND 810 ML FREE WATER DAILY MEETING 97% ESTIMATED KCAL NEEDS AND 100% ESTIMATED PROTEIN NEEDS; ADEQUATE - START TF AT 1O ML/HR INCREASE BY 1O ML Q4H UNTIL GOAL IS REACHED TOLERATED 5. MONITOR GI SYMPTOMS AND NUTRITION RELATED LAB VALUES 6. CONSULT RD PRN 7. RD TO FOLLOW-UP 2-3 DAYS, HIGH RISK REVIEWED BY TWIN [address]
--- NOTE | 2022-12-24 17:20 | NUR ---
1L WAS REMOVED DURING DIALYSIS. THORACENTESIS SCHEDULED FOR TOMORROW. PT CURRENTLY ON 15L BUBBLE NASAL CANNULA. SATURATION 98%. HEART RATE AND BLOOD PRESSURE ARE STABLE. RESPIRATORY RATE 20BPM. VERBAL FROM DR. ANDERSON. BIPAP FOR NOCTURNAL. OR NEEDED. SETTING 14/5, 10BPM, 40%. PT RESTING COMFORTABLY. WILL CONTINUE TO MONITOR.
--- NOTE | 2022-12-24 19:30 | NUR ---
RECEIVED PT FROM DAY RN FOR CONTINUITY OF CARE. PT AWAKE, ALERT AND ORIENTED X 3. ON 15L OXYMIZER, BREATHING EVEN AND UNLABORED. PT HAS R UPPER ARM PICC LINE RUNNING LEVOPHED AT 14.99 MCG/MIN AND BICARB AT 75ML/HR. CARIAS IN PLACE. TREVER CATH ON R NECK. ALL PRECAUTIONS IN PLACE. CALL LIGHT WITHIN REACH. WILL CONTINUE TO MONITOR.
[2022-12-24] MEDS: NOREPINEPHRINE 16 MG in DEXTROSE 5% 250 ML IV PRN (19:54)
--- NOTE | 2022-12-24 20:25 | NUR ---
SCHEDULED MEDICATIONS GIVEN. NO ACUTE DRUG REACTION NOTED. ALL PRECAUTIONS IN PLACE. WILL CONTINUE TO MONITOR.
--- NOTE | 2022-12-24 22:00 | NUR ---
PATIENT WILL GO TO OR FOR DEBRIDEMENT OF BUTTOCK WOUNDS.
[2022-12-24] MEDS ORDERED: fentaNYL citrate 0.05 MG/ML VIAL ONE (22:04)
[2022-12-24] MEDS ORDERED: BUPIVACAINE-MPF/EPI 0.25% 10 ML VIAL INJ ONE (22:10)
[2022-12-24] MEDS ORDERED: LIDOCAINE 1% 500 MG/50 ML VIAL ONE (22:10)
[2022-12-24] MEDS ORDERED: ePHEDrine 50 MG/ML VIAL ONE (23:04)
[2022-12-25] VITALS (30 sets, daily range): BP systolic 95–135; BP diastolic 40–94
[2022-12-25] MEDS: SODIUM BICARBONATE 8.4% 150 MEQ in DEXTROSE 5% 1,000 ML IV SCH ×2 (00:15→05:20)
[2022-12-25] MEDS: HYDRAGUARD CREAM TP SCH ×2 (01:11→12:35)
[2022-12-25] MEDS: Z-GUARD PASTE TP SCH ×2 (01:12→12:35)
[2022-12-25] MEDS: NYSTATIN POW 100 MU/GM 15 GM BTL TP SCH ×2 (01:12→12:35)
--- NOTE | 2022-12-25 04:00 | NUR ---
PT CLEANED AND REPOSITIONED. POST OP WOUND DRESSING INTACT. ALL PRECAUTIONS IN PLACE. WILL CONTINUE TO MONITOR.
--- NOTE | 2022-12-25 05:00 | NUR ---
SCHEDULED MEDICATIONS GIVEN. NO ACUTE DRUG REACTION NOTED. ALL PRECAUTIONS IN PLACE. WILL CONTINUE TO MONITOR.
[2022-12-25] MEDS: HYDROCORTISONE NA SUCC 100 MG/2 ML VIAL IV SCH ×3 (05:09→21:00)
[2022-12-25] MEDS: PIPERACILLIN/TAZOBACTAM 2.25 GM in DEXTROSE 5% 50 ML IV SCH ×3 (05:09→21:00)
[2022-12-25] MEDS: INSULIN LISPRO SLIDING SCALE 100 UNITS/ML VIAL SUBQ PRN ×3 (05:19→17:31)
[2022-12-25] MEDS: BLOOD GLUCOSE MONITORING 1 DEV DEV FS SCH ×3 (05:20→17:30)
[2022-12-25 05:26] LABS: BASOPHILS % (AUTO) 0.3 % (0.0-2.0); HEMATOCRIT 33.2 % (36-48); HEMOGLOBIN 10.6 g/dL (12.0-16.0); LYMPHOCYTES # (AUTO) 0.2 K/uL (2.5-16.5); LYMPHOCYTES % (AUTO) 1.3 % (20.5-51.1); MEAN CORPUSCULAR HEMOGLOBIN 29 pg (27-31); MEAN CORPUSCULAR HGB CONC 32 g/dL (33-37); MEAN CORPUSCULAR VOLUME 91.8 fL (80-94); MONOCYTES # (AUTO) 0.6 K/uL (0.8-1.0); MONOCYTES % (AUTO) 3.6 % (1.7-9.3); NEUTROPHILS % (AUTO) 94.8 % (42.2-75.2); PLATELET COUNT (AUTO) 107 K/uL (140-450); RED BLOOD CELL COUNT(AUTO) 3.62 MIL/uL (4.20-5.40); RED CELL DISTRIBUTION WIDTH 16.5 % (11.6-13.7); WHITE BLOOD COUNT (AUTO) 17.9 K/uL (4.8-10.8)
[2022-12-25 06:05] LABS: ANION GAP 14.7 (8-16); CARBON DIOXIDE 32.1 mmol/L (21-32); CHLORIDE 95 mmol/L (98-107); CREATININE 3.7 mg/dL (0.6-1.3); GLUCOSE 293 mg/dL (74-106); POTASSIUM 3.8 mmol/L (3.5-5.1); SODIUM SERUM 138 mmol/L (136-145)
[2022-12-25 06:18] LABS: MAGNESIUM 1.8 mg/dL (1.8-2.4); PHOSPHORUS 3.6 mg/dL (2.5-4.9)
[2022-12-25 06:29] LABS: UREA NITROGEN, BLOOD 78 mg/dL (7-18)
--- NOTE | 2022-12-25 06:43 | NUR ---
PATIENT IS ASLEEP. NO ACUTE RESPIRATORY DISTRESS. ALL NEEDS ATTENDED TO. SAFETY PRECAUTIONS MAINTAINED DURING THE SHIFT.
[2022-12-25] MEDS ORDERED: NOREPINEPHRINE 4 MG/4 ML VIAL IV ONE (06:57)
[2022-12-25] MEDS: NOREPINEPHRINE 16 MG in DEXTROSE 5% 250 ML IV PRN (07:07)
--- NOTE | 2022-12-25 07:10 | NUR ---
RECEIVED PT ON V60 16/7, F10, 40%. FACE MASK SIZE MEDIUM. ALARMS ARE SET AND AUDIBLE. PT RECEIVING ADEQUATE VOLUMES. SATURATION 95%. BREATH SOUNDS WERE COARSE THROUGHOUT. DIALYSIS SCHEDULED FOR TODAY. WILL CONTINUE TO MONITOR.
--- NOTE | 2022-12-25 07:30 | NUR ---
Received pt alert, able to track with eyes. Pt work of breathing increased with abdominal breathing. RT at bedside with pt on 15L bubble nasal cannula and switched pt over to Bipap 16/7 rate 10 FiO2@40%. Sinus tachy on monitor. Abd with hypoactive bowel sounds. Mazariegos catheter intact and draining to gravity. PICC line on right upper arm intact and patent infusing Levophed@20mcg/min, and sodium bicarb 8.4% 150mEq in dextrose 5% @75ml/hr. Safety precautions in place. Addendum: 12/25/22 at 1051 by Ximena Box RN Dialysis catheter on RIJ intact with no signs of infection.
[2022-12-25] MEDS: PANTOPRAZOLE 40 MG INJ VIAL IVP SCH (08:14)
[2022-12-25] MEDS: AZITHROMYCIN 500 MG in DEXTROSE 5% 250 ML IV SCH (08:15)
--- NOTE | 2022-12-25 08:30 | NUR ---
Hemodialysis done at bedside.
--- NOTE | 2022-12-25 08:50 | NUR ---
Dr. Nolan at bedside. Pt for thoracentesis today. Hold Heparin per .
--- NOTE | 2022-12-25 11:10 | NUR ---
HD completed. 1.2 L out per dialysis nurse.
--- NOTE | 2022-12-25 11:53 | NUR ---
PT ON 15L BUBBLE NASAL CANNULA. SATURATION 98%. RESPIRATORY RATE 22. BLOOD PRESSURE IS STABLE. BIPAP ON STAND BY. WILL CONTINUE TO MONITOR.
--- NOTE | 2022-12-25 11:53 | NUR ---
S/P DEBRIDEMENT LESS THAN 24 HOURS, WOUND PHOTO VIEWED, POC DISCUSSED WITH PRIMARY RN RAYNA AND MARLON MORA.
[2022-12-25] MEDS: THERAHONEY WOUND DRESSING TP SCH (12:35)
[2022-12-25] MEDS: THERAHONEY GEL 42.5 GM TP SCH (12:36)
--- NOTE | 2022-12-25 12:51 | NUR ---
Dr. Cochran at bedside. Reported urine output. Pt for hemodialysis tomorrow.
[2022-12-25] MEDS ORDERED: fentaNYL citrate 1 MG in NACL 0.9% 80 ML IV PRN (14:50)
[2022-12-25] MEDS ORDERED: PROPOFOL 1000 MG/100 ML PREMIX 100 ML IV ONE (14:51)
[2022-12-25] MEDS ORDERED: VANCOMYCIN 1,000 MG in DEXTROSE 5% 250 ML IV SCH (15:00)
--- NOTE | 2022-12-25 15:00 | NUR ---
Dr. Rolle at bedside examining patient and pt to be intubated. RT made aware. 1502: 20mg Etimodate and 100mg Ector given as MD ordered. 1504: Dr. Rolle successfully intubated pt with ETT 24 at teeth.
--- NOTE | 2022-12-25 15:04 | NUR ---
PT INTUBATED PER DR ANDERSON. ENDOTRACHEAL TUBE 8.0 SECURED WITH AN ANCHOR FAST AT 24 CM AT THE TEETH. X-RAY CONFIRMED PLACEMENT. INITIAL VENT SETTING ARE PC 36, F24, ITIME 1.0, +%, 100%. ABG TO FOLLOW. WILL CONTINUE TO MONITOR.
--- NOTE | 2022-12-25 15:16 | NUR ---
CXR done at bedside.
[2022-12-25] MEDS ORDERED: fentaNYL citrate - 50mL vial 2.5 MG in NACL 0.9% 200 ML IV PRN (15:20)
[2022-12-25 15:28] LABS: LACTATE DEHYDROGENASE 367 IU/L (0-214)
[2022-12-25] MEDS ORDERED: PHENYLEPHRINE 40 MG in NACL 0.9% 250 ML IV PRN (15:40)
[2022-12-25] MEDS ORDERED: VASOPRESSIN 20 UNITS in NACL 0.9% 250 ML IV SCH (15:40)
--- NOTE | 2022-12-25 15:54 | NUR ---
CXR for OG-tube placement.
[2022-12-25] MEDS: PROPOFOL 1000 MG/100 ML PREMIX 100 ML IV PRN (15:58)
--- NOTE | 2022-12-25 16:10 | NUR ---
ATTEMPTED TO SEE PT. FOR SWALLOW EVALUATION, HOWEVER PT. IS STILL INTUBATED. NEW ST ORDER NEEDED WITH PT IS APPROPRIATE. RN AWARE.
--- NOTE | 2022-12-25 16:30 | NUR ---
Received endorsement that radiology called and said thoracentesis will not be today and will be scheduled for tomorrow.
--- NOTE | 2022-12-25 16:49 | NUR ---
ABG RESULTS SENT TO DR. ANDERSON. PER ORDER TITRATED FIO2 FROM 100% TO 60%. NO OTHER VENT CHANGES AT THIS TIME. WILL CONTINUE TO MONITOR. REPEAT ABG FOR THE MORNING OF 12/26/22.
[2022-12-25] MEDS: IPRATROPIUM 0.02% 0.5 MG/2.5 ML NEBU INH PRN (17:41)
--- NOTE | 2022-12-25 18:49 | NUR ---
Dr. Dillon at bedside examining patient. Gave pt updates. No new orders.
[2022-12-26] VITALS (29 sets, daily range): BP systolic 92–154; BP diastolic 41–94
[2022-12-26] MEDS: PROPOFOL 1000 MG/100 ML PREMIX 100 ML IV PRN ×4 (00:02→18:51)
[2022-12-26] MEDS: BLOOD GLUCOSE MONITORING 1 DEV DEV FS SCH ×4 (00:03→17:27)
[2022-12-26] MEDS: Z-GUARD PASTE TP SCH ×2 (00:08→13:30)
[2022-12-26] MEDS: HYDRAGUARD CREAM TP SCH ×2 (00:09→13:29)
[2022-12-26] MEDS: NYSTATIN POW 100 MU/GM 15 GM BTL TP SCH ×2 (00:11→13:30)
[2022-12-26] MEDS: INSULIN LISPRO SLIDING SCALE 100 UNITS/ML VIAL SUBQ PRN ×3 (00:16→17:27)
[2022-12-26] MEDS: PIPERACILLIN/TAZOBACTAM 2.25 GM in DEXTROSE 5% 50 ML IV SCH ×3 (06:05→20:19)
[2022-12-26] MEDS: HYDROCORTISONE NA SUCC 100 MG/2 ML VIAL IV SCH ×3 (06:07→20:19)
[2022-12-26] MEDS: LEVOTHYROXINE SODIUM 100 MCG VIAL IV SCH (06:08)
[2022-12-26] MEDS: SODIUM BICARBONATE 8.4% 150 MEQ in DEXTROSE 5% 1,000 ML IV SCH ×2 (06:08→22:15)
[2022-12-26 06:11] LABS: ANION GAP 14.4 (8-16); CARBON DIOXIDE 30.8 mmol/L (21-32); CHLORIDE 95 mmol/L (98-107); CREATININE 3.3 mg/dL (0.6-1.3); GLUCOSE 202 mg/dL (74-106); POTASSIUM 3.2 mmol/L (3.5-5.1); SODIUM SERUM 137 mmol/L (136-145); UREA NITROGEN, BLOOD 54 mg/dL (7-18)
[2022-12-26 06:16] LABS: BASOPHILS % (AUTO) 0.1 % (0.0-2.0); EOSINOPHILS % (AUTO) 0.1 % (0.0-4.0); HEMATOCRIT 31.1 % (36-48); HEMOGLOBIN 10.4 g/dL (12.0-16.0); LYMPHOCYTES # (AUTO) 0.4 K/uL (2.5-16.5); LYMPHOCYTES % (AUTO) 1.9 % (20.5-51.1); MEAN CORPUSCULAR HEMOGLOBIN 31 pg (27-31); MEAN CORPUSCULAR HGB CONC 33 g/dL (33-37); MEAN CORPUSCULAR VOLUME 93.3 fL (80-94); MONOCYTES # (AUTO) 0.9 K/uL (0.8-1.0); MONOCYTES % (AUTO) 4.6 % (1.7-9.3); NEUTROPHILS # (AUTO) 18.6 K/uL (1.8-7.7); NEUTROPHILS % (AUTO) 93.3 % (42.2-75.2); PLATELET COUNT (AUTO) 84 K/uL (140-450); RED BLOOD CELL COUNT(AUTO) 3.34 MIL/uL (4.20-5.40); RED CELL DISTRIBUTION WIDTH 16.2 % (11.6-13.7); WHITE BLOOD COUNT (AUTO) 19.9 K/uL (4.8-10.8)
[2022-12-26 06:23] LABS: MAGNESIUM 1.6 mg/dL (1.8-2.4); PHOSPHORUS 2.3 mg/dL (2.5-4.9)
--- NOTE | 2022-12-26 06:45 | NUR ---
RECEIVED PT ON PC 40, F24, ITIME 0.75, +5, 50%. VENT WHEELS ARE LOCKED, PLUGGED INTO RED OUTLET, AMBUBAG AT BEDSIDE, ALARMS ARE SET AND AUDIBLE TO THE NURSE STATION. SATURATION 100%, WILL TITRATE FI02. BREATH SOUNDS WERE COARSE WITH WHEEZE. ABG SCHEDULED FOR 0800. WILL CONTINUE TO MONITOR.
--- NOTE | 2022-12-26 08:20 | NUR ---
0800 NORMAL ABG WALKED DOWN TO THE ICU AND GIVEN TO MORGAN CROWDER.
[2022-12-26] MEDS ORDERED: ZOLPIDEM 10 MG TAB PO PRN (09:05)
[2022-12-26] MEDS ORDERED: POTASSIUM CHLORIDE 10 MEQ TABER PO PRN (09:05)
[2022-12-26] MEDS ORDERED: DOCUSATE SODIUM 100 MG GELCAP PO PRN (09:05)
[2022-12-26] MEDS ORDERED: ACETAMINOPHEN 325 MG TAB PO PRN (09:05)
[2022-12-26] MEDS ORDERED: LORazepam 2 MG/ML VIAL IVP PRN (09:05)
[2022-12-26] MEDS ORDERED: ONDANSETRON 4 MG/2 ML VIAL IVP PRN (09:05)
[2022-12-26] MEDS: PANTOPRAZOLE 40 MG INJ VIAL IVP SCH (09:32)
[2022-12-26] MEDS: AZITHROMYCIN 500 MG in DEXTROSE 5% 250 ML IV SCH (09:32)
--- NOTE | 2022-12-26 09:45 | NUR ---
DR. ANDERSON ROUNDED ON PT AND CHANGED VENT SETTINGS. RT NOTIFIED.
--- NOTE | 2022-12-26 10:00 | NUR ---
CURRENT VENT CHANGES. PC 30,F24,ITIME.95, +5. 35% PER DR ANDERSON.
[2022-12-26] MEDS ORDERED: KCL 20 MEQ IN 100 mL PREMIX 100 ML IV SCH (10:35)
[2022-12-26] MEDS ORDERED: ALBUMIN HUMAN 25% 100 ML IV ONE ×2 (11:45→11:46)
[2022-12-26] MEDS ORDERED: ALBUMIN HUMAN 25% 200 ML IV SCH (13:00)
[2022-12-26] MEDS: NOREPINEPHRINE 16 MG in DEXTROSE 5% 250 ML IV PRN (13:03)
[2022-12-26] MEDS: THERAHONEY GEL 42.5 GM TP SCH (13:30)
[2022-12-26] MEDS: THERAHONEY WOUND DRESSING TP SCH (13:30)
--- NOTE | 2022-12-26 14:00 | NUR ---
1 L OUT FOR HEMODIALYSIS
[2022-12-26] MEDS: MAG SULF 2000 MG/WATER PREMIX 50 ML IV PRN (15:18)
[2022-12-26] MEDS ORDERED: LIDOCAINE MPF 1% 5 ML ONE ×2 (16:44→16:45)
--- NOTE | 2022-12-26 19:12 | NUR ---
REPORT GIVEN TO NIGHTSHIFT NURSEEV FOR CONTINUITY OF CARE.
--- NOTE | 2022-12-26 19:42 | NUR ---
RECEIVED REPORT FROM AM SHIFT. PATIENT WAS SEEN AND ASSESSED. PATIENT IS INTUBATED AND SEDATED WITH ETT SIZE 8.0 AND SECURED WITH A BITING BLOCK ANCHOR-FAST 24cm @ TEETH. PATIENT IS ON VENTILATOR SUPPORT. VENT SETTINGS: AC/PC SET PRESSURE 30, RR 18, PEEP 5, FiO2 35% WITH SPO2 OF 98%. VENTILATOR PLUGGED IN RED OUTLET. VENTILATOR ALARMS SET APPROPRIATELY AND AUDIBLE TO ENVIRONMENT. AMBU BAG AT BEDSIDE. HEAD OF BED GREATER THAN 30 DEGREES. NOTICED ADEQUATE BILATERAL CHEST RISE AND FALL. PATIENT IS IN NO RESPIRATORY DISTRESS AT THIS TIME. SUCTIONED SMALL WHITE THICK SECRETIONS FROM ETT AND SMALL WHITE THIN ORALLY. ORAL CARE WAS DONE AND PT TOLERATED WELL. BILATERAL BREATH SOUNDS ON AUSCULTATION; UPPER LOBES: COARSE CRACKLES LOWER LOBES: COARSE CRACKLES WILL CONTINUE TO MONITOR PATIENT.
[2022-12-27] VITALS (30 sets, daily range): BP systolic 89–149; BP diastolic 45–67
[2022-12-27] MEDS: Z-GUARD PASTE TP SCH ×2 (01:00→13:29)
[2022-12-27] MEDS: NYSTATIN POW 100 MU/GM 15 GM BTL TP SCH ×2 (01:00→13:28)
[2022-12-27] MEDS: HYDRAGUARD CREAM TP SCH ×2 (01:00→13:28)
[2022-12-27] MEDS: INSULIN LISPRO SLIDING SCALE 100 UNITS/ML VIAL SUBQ PRN ×4 (01:54→17:23)
[2022-12-27] MEDS: PROPOFOL 1000 MG/100 ML PREMIX 100 ML IV PRN ×4 (01:59→18:25)
--- NOTE | 2022-12-27 04:11 | NUR ---
SPO2 100%. TITRATED FiO2 FROM 35% TO 30%. PT TOLERATING WELL AT THIS TIME. SPO2 97%. RN NOTIFIED. WILL CONTINUE TO MONITOR PT.
[2022-12-27 06:01] LABS: BASOPHILS % (AUTO) 0.1 % (0.0-2.0); HEMATOCRIT 24.8 % (36-48); HEMOGLOBIN 8.4 g/dL (12.0-16.0); LYMPHOCYTES # (AUTO) 0.6 K/uL (2.5-16.5); LYMPHOCYTES % (AUTO) 2.8 % (20.5-51.1); MEAN CORPUSCULAR HEMOGLOBIN 30 pg (27-31); MEAN CORPUSCULAR HGB CONC 34 g/dL (33-37); MEAN CORPUSCULAR VOLUME 87.8 fL (80-94); MONOCYTES # (AUTO) 0.7 K/uL (0.8-1.0); MONOCYTES % (AUTO) 3.2 % (1.7-9.3); NEUTROPHILS # (AUTO) 19.5 K/uL (1.8-7.7); NEUTROPHILS % (AUTO) 93.9 % (42.2-75.2); PLATELET COUNT (AUTO) 70 K/uL (140-450); RED BLOOD CELL COUNT(AUTO) 2.82 MIL/uL (4.20-5.40); RED CELL DISTRIBUTION WIDTH 15.4 % (11.6-13.7); WHITE BLOOD COUNT (AUTO) 20.8 K/uL (4.8-10.8)
[2022-12-27] MEDS: PIPERACILLIN/TAZOBACTAM 2.25 GM in DEXTROSE 5% 50 ML IV SCH ×3 (06:20→21:38)
[2022-12-27] MEDS: LEVOTHYROXINE SODIUM 100 MCG VIAL IV SCH (06:21)
[2022-12-27] MEDS: HYDROCORTISONE NA SUCC 100 MG/2 ML VIAL IV SCH ×3 (06:21→21:39)
[2022-12-27] MEDS: BLOOD GLUCOSE MONITORING 1 DEV DEV FS SCH ×4 (06:21→17:22)
[2022-12-27 06:46] LABS: ANION GAP 14.2 (8-16); CARBON DIOXIDE 31.4 mmol/L (21-32); CHLORIDE 98 mmol/L (98-107); CREATININE 2.7 mg/dL (0.6-1.3); GLUCOSE 243 mg/dL (74-106); POTASSIUM 3.6 mmol/L (3.5-5.1); SODIUM SERUM 140 mmol/L (136-145); UREA NITROGEN, BLOOD 38 mg/dL (7-18)
[2022-12-27 07:11] LABS: MAGNESIUM 1.8 mg/dL (1.8-2.4); PHOSPHORUS 1.4 mg/dL (2.5-4.9)
--- NOTE | 2022-12-27 07:30 | NUR ---
RECEIVED REPORT FROM NIGHTSHIFT NURSE, EV AND HE STATES PT HAD LARGE BLACK STOOL LAST NIGHT. NOTIFIED . OG TUBE BLACK. HOB ELEVATED. PC 30, 24, +5, ITIME 0.95, 30%. ETT SIZE 8, 24 @ TEETH. VENT PLUGGED IN RED OUTLET. CARIAS VIA GRAVITY WITH MINIMAL YELLOW, URINE OUTPUT. LEVOPHED @ 12 ML/HR. PROPOFOL @ 20 ML/HR. SODIUM BICARB @ 70 ML/HR. HOB ELEVATED. ALL SAFETY MEASURES IN PLACE.
--- NOTE | 2022-12-27 08:00 | NUR ---
CONTACTED MD THAT DIALYSIS CATHETER IS NOT WORKING PER DIALYSIS NURSE AND DIALYSIS ORDER IS NEEDED. CONTACTED OR AND THEY STATE DR. EDWARDS IS NOT SCHEDULED FOR CHEST TUBE PLACEMENT TODAY.
--- NOTE | 2022-12-27 08:17 | NUR ---
DR LEONARDO CONSULTED DR. BROWN FOR POSSIBLE GI BLEED
[2022-12-27] MEDS: PANTOPRAZOLE 40 MG INJ VIAL IVP SCH (08:41)
[2022-12-27] MEDS ORDERED: LIDOCAINE 1% 500 MG/ 50 ML VIAL INJ ONE (09:05)
[2022-12-27] MEDS ORDERED: ALTEPLASE 2 MG VIAL MC ONE (09:10)
[2022-12-27] MEDS ORDERED: ALTEPLASE 2 MG VIAL MC SCH (09:20)
--- NOTE | 2022-12-27 09:30 | NUR ---
DR. ANDERSON ORDER TO STOP PROPOFOL TO SEE HOW PT TOLERATES. CONTACTED RT.
--- NOTE | 2022-12-27 09:35 | NUR ---
CPAP TRIAL PER DR. ANDERSON. STARTED PT ON 03/03. SHE LASTED ABOUT 5 MINUTES BEFORE BECOMING TACHYPNEIC IN THE 30S AND HER VOLUMES DROPPED TO THE 200S. RETURNED PT TO FULL VENT SUPPORT. PC 30,F24,+5, 30%. WILL CONTINUE TO MONITOR.
[2022-12-27] MEDS: NOREPINEPHRINE 16 MG in DEXTROSE 5% 250 ML IV PRN (09:52)
--- NOTE | 2022-12-27 10:45 | NUR ---
SPOKE WITH DR. ANDERSON AND HE ORDERED FOR R PIGTAIL CATHETER, COAG STUDY. CONTACTED RADIOLOGY AND STATES WILL CONTACT IR.
--- NOTE | 2022-12-27 11:00 | NUR ---
LEVOPHED INCREASE BY 14 Addendum: 12/27/22 at 1764 by Agency Nurse 18MORGAN RN WRONG NOTE: LEVOPHED INCREASED RUNNING AT 14
--- NOTE | 2022-12-27 11:22 | NUR ---
SPOKE WITH RADIOLOGY AND STATES DR. ANDERSON AND IR DECIDED FOR A THORACENTESIS TODAY AT 1300.
[2022-12-27 13:19] LABS: PROTHROMBIN TIME 11.3 secs (10.8-13.4)
[2022-12-27] MEDS: THERAHONEY GEL 42.5 GM TP SCH (13:29)
[2022-12-27] MEDS: THERAHONEY WOUND DRESSING TP SCH (13:29)
--- NOTE | 2022-12-27 13:30 | NUR ---
DIALYSIS NURSE AT BEDSIDE ABOUT TO START DIALYSIS. INFORMED DIALYSIS NURSE THAT THORACENTESIS IS PLANNED. CONTACTED RADIOLOGY REGARDING WHEN IR WILL BE ARRIVING AND TRUDY STATES SHE DOES NOT KNOW. INFORMED DIALYSIS NURSE AND DIALYSIS NURSE STATES HE WONT BE DOING DIALYSIS TODAY.
--- NOTE | 2022-12-27 15:40 | NUR ---
RT AT BEDSIDE. DR. BRICE (IR) PERFORMED AND COMPLETED THORACENTESIS WITH 1.6L OUT. ORDER FOR CHEST XRAY FOR S/P THORACENTESIS. ORDERS INPUTTED. FLUIDS SENT TO LAB. DR. EDWARDS ROUNDED ON PT.
--- NOTE | 2022-12-27 16:19 | NUR ---
PT WITH SMALL BLACK STOOL. PT CHANGED AND REPOSITIONED WITH ASSISTANCE OF RT AT 2 NURSING STUDENTS. DRESSING CHANGED. PT TOLERATED WELL. HOB ELEVATED. VSS.
--- NOTE | 2022-12-27 16:30 | NUR ---
12/27/22 RD FOLLOW UP COMPLETED PLEASE REFER TO NUTRITION ASSESSMENT UNDER CARE ACTIVITY FOR ESTIMATED NUTRITIONAL NEEDS. 1. MONITOR NPO STATUS 2. WHEN/IF MEDICALLY APPROPRIATE TO START PO DIET, RECOMMEND RENAL, [id number] DIET WITH TEXTURE MODIFICATIONS PER ST SWALLOW EVAL RECOMMENDATIONS 3. RECOMMEND LUANA BID PER RX PROTOCOL - PROVIDES 160 KCAL, 5 GM PROTEIN DAILY 4. WHEN/IF MEDICALLY APPROPRIATE TO START TF, RECOMMEND NEPRO CARBSTEADY 1.8 AT GOAL RATE 35 ML/HR, FWF 50 ML Q6H OR PER MD TOLERATED, WITH LUANA BID PER RX PROTOCOL - PROVIDES 840 ML TOTAL VOLUME, 1512 KCAL, 68 GM PROTEIN AND 810 ML FREE WATER DAILY MEETING 97% ESTIMATED KCAL NEEDS AND 100% ESTIMATED PROTEIN NEEDS; ADEQUATE - START TF AT 1O ML/HR INCREASE BY 1O ML Q4H UNTIL GOAL IS REACHED TOLERATED 5. MONITOR GI SYMPTOMS AND NUTRITION RELATED LAB VALUES 6. CONSULT RD PRN 7. RD TO FOLLOW-UP 2-3 DAYS, HIGH RISK REVIEWED BY TWIN CURTIS RD
--- NOTE | 2022-12-27 16:50 | NUR ---
DR. BRICE CALLED AND REPORTED SMALL PNEUMOTHORAX ON RECENT CXR. CONTACTED DR. ANDERSON REGARDING RESULTS AND DR. ANDERSON ORDER CXR FOR TOMORROW.
--- NOTE | 2022-12-27 19:00 | NUR ---
Assued pt care report received from VEL MORA at the bedside, pt intubated ETT to mechanical ventilator support FIO2 35% tolerating well O2 SAT 100% oral care done, airway suction for clearance, sedated on Propofol unable to follow commands moves extremities spontaneously also withdraws to pain, generalized body weakness, occasional facial grimacing, vitals signs WNL ongoing Levophed drip, AFEBRILE, NPO OGT clamped , marin with low urine output MD aware, pt repositioned for comfort will continue to monitor and treat as per care plan.
--- NOTE | 2022-12-27 19:00 | NUR ---
BEDSIDE REPORT GIVEN TO NIGHTSHIFT NURSEGILBERTO FOR CONTINUITY OF CARE.
[2022-12-27 19:09] LABS: APPEARANCE,SPUN,BODY FLUID CLEAR (CLEAR); APPEARANCE,UNSPUN,BODY FLUID HAZY (CLEAR); COLOR,BODY FLUID YELLOW (LT YELLOW); GLUCOSE,BODY FLUID 213 mg/dL; SPECIMENTYPE,BODY FLUID PLEURAL; TOTAL VOLUME,BODY FLUID 1500 mL
--- NOTE | 2022-12-27 19:16 | NUR ---
Dr Estrada was here at the bedside GI consult pt's assessment at the bedside. MD asked if therei is any bowel movement and color. also checked the color of the GI secrtion via OGT was greenish, MD said there is no need to scope pt and if there any changes overnight to notify him.
[2022-12-27 20:34] LABS: RBC, BODY FLUID 10000 /cu. mm.; WBC, BODY FLUID 0 /cu. mm.
[2022-12-27] MEDS ORDERED: VANCOMYCIN 1,000 MG in NACL 0.9% 250 ML IV SCH (21:00)
[2022-12-28] VITALS (28 sets, daily range): BP systolic 86–151; BP diastolic 30–116
[2022-12-28] MEDS: BLOOD GLUCOSE MONITORING 1 DEV DEV FS SCH ×4 (00:18→17:40)
[2022-12-28] MEDS: INSULIN LISPRO SLIDING SCALE 100 UNITS/ML VIAL SUBQ PRN ×4 (00:21→17:40)
[2022-12-28] MEDS: PROPOFOL 1000 MG/100 ML PREMIX 100 ML IV PRN ×4 (00:27→14:07)
[2022-12-28] MEDS: HYDRAGUARD CREAM TP SCH ×2 (00:28→12:05)
[2022-12-28] MEDS: Z-GUARD PASTE TP SCH ×2 (00:28→12:07)
[2022-12-28] MEDS: NYSTATIN POW 100 MU/GM 15 GM BTL TP SCH (00:28)
--- NOTE | 2022-12-28 04:45 | NUR ---
Complete bed bath,linen changed, total max assistance, wound care done dressing changed, flexiseal inserted as pt had max loose stool black and to promote wound healing . Tolerating care with minimal discomfort and no changes in pt's condition
[2022-12-28] MEDS: PIPERACILLIN/TAZOBACTAM 2.25 GM in DEXTROSE 5% 50 ML IV SCH ×3 (06:16→21:57)
[2022-12-28] MEDS: LEVOTHYROXINE SODIUM 100 MCG VIAL IV SCH (06:17)
[2022-12-28] MEDS: HYDROCORTISONE NA SUCC 100 MG/2 ML VIAL IV SCH ×3 (06:17→22:25)
[2022-12-28 07:12] LABS: BASOPHILS # (AUTO) 0.1 K/uL (0.00-0.22); BASOPHILS % (AUTO) 0.2 % (0.0-2.0); HEMATOCRIT 25.8 % (36-48); HEMOGLOBIN 8.5 g/dL (12.0-16.0); LYMPHOCYTES # (AUTO) 0.7 K/uL (2.5-16.5); LYMPHOCYTES % (AUTO) 3.3 % (20.5-51.1); MEAN CORPUSCULAR HEMOGLOBIN 31 pg (27-31); MEAN CORPUSCULAR HGB CONC 33 g/dL (33-37); MONOCYTES # (AUTO) 0.8 K/uL (0.8-1.0); MONOCYTES % (AUTO) 3.5 % (1.7-9.3); PLATELET COUNT (AUTO) 83 K/uL (140-450); RED CELL DISTRIBUTION WIDTH 15.7 % (11.6-13.7); WHITE BLOOD COUNT (AUTO) 22.6 K/uL (4.8-10.8)
--- NOTE | 2022-12-28 07:15 | NUR ---
RECEIVED BEDSIDE REPORT FROM BACON SKIN LIFTER GILBERTO MORA. PT SEDATED. ETT TO VENT. AC PC FIO2 35%, PRESSURE 30, RATE 24, PEEP 5. SR ON MONITOR. PICC LINE TO JAQUELINE, RUNNING PROPOFOL @30MCG/KG/MIN, LEVO @ 10MCG/MIN, TKO @ 3MLS/HR. HD CATHETER TO RT IJ, CLAMPED. OGT IN PLACE AND CLAMPED. NPO. CARIAS IN PLACE, URINE CLEAR AND YELLOW. RECTAL TUBE IN PLACE, BLACK TARRY STOOL. SEE WOUND ASSESSMENT. BED TO LOWEST POSITION, HOB ELEVATED, CALL LIGHT WITHIN REACH, WILL CONTINUE TO MONITOR.
--- NOTE | 2022-12-28 07:19 | NUR ---
Change of shift report given to Anjel MORA for continuity of care as at this time vitals signs stable pt tolerating care well no changes in care plan and pt's condition.
[2022-12-28 07:57] LABS: ANION GAP 15.1 (8-16); CARBON DIOXIDE 29.9 mmol/L (21-32); CHLORIDE 96 mmol/L (98-107); CREATININE 3.4 mg/dL (0.6-1.3); GLUCOSE 209 mg/dL (74-106); SODIUM SERUM 137 mmol/L (136-145); UREA NITROGEN, BLOOD 53 mg/dL (7-18)
[2022-12-28] MEDS: PANTOPRAZOLE 40 MG INJ VIAL IVP SCH (08:03)
[2022-12-28 08:13] LABS: PHOSPHORUS 1.9 mg/dL (2.5-4.9)
--- NOTE | 2022-12-28 09:24 | NUR ---
DR AYOUB ROUNDING AT BEDSIDE. UPDATED PT INFORMATION.
--- NOTE | 2022-12-28 09:48 | NUR ---
DR ROSS ROUNDMARIA G AT BEDSIDE. UPDATED PT INFORMATION.
--- NOTE | 2022-12-28 10:14 | NUR ---
DR MONICA MORA AT BEDSIDE. UPDATED PT INFORMATION. ORDERED TO START TUBE FEEDING PER DIETITIAN RECOMMENDATION. [facility] SAMPLE (LAB CALLED, SAMPLE RECEIVED ON 12/27, WILL BE RESULTED LATE TODAY)
--- NOTE | 2022-12-28 10:15 | NUR ---
DR ANDERSON ROUNDED ON PT DR WANTS PT TO GET SMALLER VOLUMES. RT DECREASED INSP 25. PT VT ARE IN MID TO HIGH 300S. PT TOLERATING VENT CHANGES WELL. NEW ORDERS FOR DAILY CPAP TRIALS WERE ALSO REQUESTED.
--- NOTE | 2022-12-28 10:25 | NUR ---
PT WAS PLACED ON CPAP AFTER SEDATION WAS TURNED OFF PT DID NOT TOLERATE WELL. RR RAISED TO THE 40S AND PT WOULD RAISE HER ARMS TO TRY AND GRAB THE TUBE. WILL TRY AGAIN AT A LATER TIME.WILL CONTINUE TO MONITOR. PT WAS PLACED BACK ON PROPOFOL. HR 89 SPO2 100%
[2022-12-28] MEDS ORDERED: DEXMEDETOMIDINE HCL 400 MCG in NACL 0.9% 96 ML IV PRN ×4 (10:40→11:30)
--- NOTE | 2022-12-28 10:45 | NUR ---
PT WAS PLACED BACK ON CPAP 15/5 AND FAILED AGAIN. RR IN THE 40S AFTER 5 MINUTES. RN AWARE PLACED PT BACK OF ORIGINAL SETTINGS. WILL CONTINUE TO MONITOR AND PASS DOWN CPAP TRIALS TO NEXT SHIFT.
[2022-12-28] MEDS: THERAHONEY GEL 42.5 GM TP SCH (12:05)
[2022-12-28] MEDS: THERAHONEY WOUND DRESSING TP SCH (12:06)
[2022-12-28] MEDS: NOREPINEPHRINE 16 MG in DEXTROSE 5% 250 ML IV PRN (15:14)
[2022-12-28 17:00] LABS: ALBUMIN,BODY FLUID 1.3 g/dL; LDH,BODY FLUID 181 U/L
[2022-12-28] MEDS: DEXMEDETOMIDINE HCL 400 MCG in DEXTROSE 5% 96 ML IV PRN (18:26)
--- NOTE | 2022-12-28 19:00 | NUR ---
Dr Estrada was here at the bedside assessed pt saw pt stool via Flexiseal, ordered to connect the OGT to suction low intermittent and to send stool for CDIFF order placed in computer by TESFAYE MORA
--- NOTE | 2022-12-28 19:30 | NUR ---
Bedside report received from TESFAYE RN, sedated on Propofol, also Precedex, unable to follow verbal command withdraw extremities to pain and spontaneously. NSR on the monitor vitals signs stable afebrile ongoing Levophed drip,intubated ETT to vent FIO2 35% O2 SAT 100% ORAL care done and suction for airway clearance tolerated well. OGT to suction placement verified /checked by auscultation, marin to gravity low urine output pt also hemodialysis pt IV site checked patent and intact. Ongoing monitoring and treat as per care plan.
--- NOTE | 2022-12-28 19:39 | NUR ---
ENDORSED TO BOY'S ADVISER GILBERTO MORA FOR CONTINUITY OF CARE. ALL QUESTIONS ANSWERED.
[2022-12-29] VITALS (31 sets, daily range): BP systolic 88–136; BP diastolic 36–109
[2022-12-29] MEDS: HYDRAGUARD CREAM TP SCH ×2 (01:23→13:03)
[2022-12-29] MEDS: Z-GUARD PASTE TP SCH ×2 (01:24→13:05)
--- NOTE | 2022-12-29 04:30 | NUR ---
Complete bed bath wound/ oral /kenneth/ skin care and linen changed max assist total care with 3 persons pt tolerated well with minimal discomfort vitals signs stable no changes in pt's condition.
[2022-12-29] MEDS: PIPERACILLIN/TAZOBACTAM 2.25 GM in DEXTROSE 5% 50 ML IV SCH ×3 (05:49→20:43)
[2022-12-29] MEDS: HYDROCORTISONE NA SUCC 100 MG/2 ML VIAL IV SCH ×3 (05:49→20:43)
[2022-12-29] MEDS: DEXMEDETOMIDINE HCL 400 MCG in DEXTROSE 5% 96 ML IV PRN (05:53)
[2022-12-29] MEDS: PROPOFOL 1000 MG/100 ML PREMIX 100 ML IV PRN ×2 (05:54→18:25)
[2022-12-29 06:04] LABS: BASOPHILS % (AUTO) 0.1 % (0.0-2.0); EOSINOPHILS % (AUTO) 0.1 % (0.0-4.0); HEMATOCRIT 24.7 % (36-48); HEMOGLOBIN 8.1 g/dL (12.0-16.0); LYMPHOCYTES # (AUTO) 0.8 K/uL (2.5-16.5); MEAN CORPUSCULAR HEMOGLOBIN 30 pg (27-31); MEAN CORPUSCULAR HGB CONC 33 g/dL (33-37); MEAN CORPUSCULAR VOLUME 92.1 fL (80-94); MONOCYTES # (AUTO) 0.6 K/uL (0.8-1.0); MONOCYTES % (AUTO) 3.3 % (1.7-9.3); NEUTROPHILS # (AUTO) 16.5 K/uL (1.8-7.7); PLATELET COUNT (AUTO) 95 K/uL (140-450); RED BLOOD CELL COUNT(AUTO) 2.68 MIL/uL (4.20-5.40); RED CELL DISTRIBUTION WIDTH 15.7 % (11.6-13.7); WHITE BLOOD COUNT (AUTO) 17.9 K/uL (4.8-10.8)
[2022-12-29] MEDS: BLOOD GLUCOSE MONITORING 1 DEV DEV FS SCH ×4 (06:18→18:10)
[2022-12-29] MEDS: INSULIN LISPRO SLIDING SCALE 100 UNITS/ML VIAL SUBQ PRN ×4 (06:19→18:03)
[2022-12-29 06:21] LABS: MAGNESIUM 2.1 mg/dL (1.8-2.4); PHOSPHORUS 3.4 mg/dL (2.5-4.9)
[2022-12-29] MEDS: LEVOTHYROXINE SODIUM 100 MCG VIAL IV SCH (06:21)
[2022-12-29 06:26] LABS: ANION GAP 12.9 (8-16); CARBON DIOXIDE 31.1 mmol/L (21-32); CHLORIDE 96 mmol/L (98-107); CREATININE 3.9 mg/dL (0.6-1.3); GLUCOSE 215 mg/dL (74-106); SODIUM SERUM 136 mmol/L (136-145)
[2022-12-29 06:30] LABS: UREA NITROGEN, BLOOD 64 mg/dL (7-18)
[2022-12-29 07:14] LABS: LYMPHOCYTES % (AUTO) 4.5 % (20.5-51.1)
--- NOTE | 2022-12-29 07:15 | NUR ---
RECEIVED BEDSIDE REPORT FROM SALES PLANNING MANAGER GILBERTO MORA. PT SEDATED. ETT TO VENT. AC PC FIO2 35%, PRESSURE 25, RATE 24, PEEP 5. SR ON MONITOR. PICC LINE TO JAQUELINE, RUNNING PROPOFOL @5MCG/KG/MIN, LEVO @ 2MCG/MIN, TKO @ 3MLS/HR, PRECEDEX @ 0.2MCG/KG/H. HD CATHETER TO RT IJ, CLAMPED. OGT IN PLACE AND CLAMPED. NPO. CARIAS IN PLACE, URINE CLEAR AND YELLOW. RECTAL TUBE IN PLACE, BLACK TARRY STOOL. SEE WOUND ASSESSMENT. BED TO LOWEST POSITION, HOB ELEVATED, CALL LIGHT WITHIN REACH, WILL CONTINUE TO MONITOR.
--- NOTE | 2022-12-29 07:15 | NUR ---
Elevated BUN 64 and Creatinine 3.9 as opposed yesterday BUN 53/CREATININE 3.4 Dr Elvin Nance notified order received Hemodialysis today and [facility] also aware on MD's order.
--- NOTE | 2022-12-29 07:20 | NUR ---
Bedside report given to TESFAYE MORA at the bedside went over drips rates/doses PROPOFOL, PRECEDEX, LEVOPHED, vitals signs stable pt tolerating all care no changes care plan and condition. Also mentioned to RN that there is an order for HEMODIALYSIS today [facility] notified as per Dr PROSPER MANCILLA order received this AM.
[2022-12-29] MEDS: PANTOPRAZOLE 40 MG INJ VIAL IVP SCH (08:14)
--- NOTE | 2022-12-29 08:40 | NUR ---
CXR done at bedside.
--- NOTE | 2022-12-29 09:33 | NUR ---
DR AYOUB ROUNDING AT BEDSIDE. UPDATED PT INFORMATION. HD ORDERED TODAY.
--- NOTE | 2022-12-29 10:45 | NUR ---
DR ANDERSON ROUNDMARIA G AT BEDSIDE. UPDATED PT INFORMATION. NO NEW ORDER.
--- NOTE | 2022-12-29 11:42 | NUR ---
RECEIVED PHONE CALL FROM AYAD/SISTER IN LAW. UPDATED PT INFORMATION.
--- NOTE | 2022-12-29 11:50 | NUR ---
DR ROSS ROUNDMARIA G AT BEDSIDE. UPDATED PT INFORMATION.
[2022-12-29] MEDS: THERAHONEY WOUND DRESSING TP SCH (13:04)
[2022-12-29] MEDS: THERAHONEY GEL 42.5 GM TP SCH (13:04)
--- NOTE | 2022-12-29 14:19 | NUR ---
HD STARTED AT BEDSIDE. VS STABLE.
--- NOTE | 2022-12-29 15:07 | NUR ---
Dr Dillon rounding at bedside. updated pt information
--- NOTE | 2022-12-29 15:27 | NUR ---
RECEIVED PHONE CALL FORM DR BROWN. UPDATED PT INFORMATION. ORDERED STOP NG TUBE SUCTION. START TUBE FEEDING.
--- NOTE | 2022-12-29 15:41 | NUR ---
12/29/22 RD FOLLOW UP COMPLETED. PLEASE REFER TO NUTRITION ASSESSMENT UNDER CARE ACTIVITY FOR ESTIMATED NUTRITIONAL NEEDS. 1. WHEN/IF MEDICALLY APPROPRIATE, RECOMMEND NEPRO CARBSTEADY 1.8 WITH A GOAL RATE OF 25 ML/HR -RECOMMEND PROSOURCE BID (120 KCAL, 30 GRAMS PROTEIN) TO PROMOTE WOUND HEALING PER RD PROTOCOL -START TUBE FEEDING AT 10 ML/HR INCREASE BY 10 ML Q4H UNTIL GOAL RATE IS REACHED -FWF 100 ML Q6H OR PER MD THIS WILL PROVIDE 600 ML VOLUME, 1080 KCAL, & 48 GRAMS PROTEIN. WITH PROPOFOL AT 7.3 ML/HR (PROVIDES 192 KCAL)AND PROSOURCE BID, THIS WILL MEET 89% OF ESTIMATED KCAL AND 100% OF PROTEIN NEEDS;ADEQUATE 2.MONITOR NPO STATUS, AND GI SYMPTOMS 3. RD TO FOLLOW UP 2-3 DAYS, HIGH RISK NASIM LANDIN RD
--- NOTE | 2022-12-29 17:14 | NUR ---
BEDSIDE HD DONE, 2L FLUID REMOVED.
--- NOTE | 2022-12-29 19:15 | NUR ---
Assumed pt care bedside report received from TESFAYE MORA pt intubated ETT to VENT FIO2 35% tolerating well oral care done O2 sat 94% viltals signs stable ongoing Levophed drip, afebrile, OGT placement checked verified by auscultation, tube feeding residual checked <20ml, unable to follow commands, moves extremities to pain, marin to gravity low urine output, as at this time unable to comprehend teaching due to her condition, soft wrist restraints on for safety, skin checked ROM done and will continue to monitor and treat as per care plan. All drips checked PROPOFOL, LEVOPHED AND PRECEDEX.
--- NOTE | 2022-12-29 19:15 | NUR ---
ENDORSED TO [employer] SOFTWARE GILBERTO MORA FOR CONTINUITY OF CARE, ALL QUESTIONS ANSWERED.
[2022-12-30] VITALS (26 sets, daily range): BP systolic 85–138; BP diastolic 42–83
[2022-12-30] MEDS: BLOOD GLUCOSE MONITORING 1 DEV DEV FS SCH ×4 (00:43→18:00)
[2022-12-30] MEDS: HYDRAGUARD CREAM TP SCH ×2 (00:44→13:00)
[2022-12-30] MEDS: Z-GUARD PASTE TP SCH ×2 (00:44→13:00)
[2022-12-30] MEDS: INSULIN LISPRO SLIDING SCALE 100 UNITS/ML VIAL SUBQ PRN ×3 (00:46→13:31)
[2022-12-30] MEDS: DEXMEDETOMIDINE HCL 400 MCG in DEXTROSE 5% 96 ML IV PRN ×2 (03:41→14:00)
[2022-12-30] MEDS: PIPERACILLIN/TAZOBACTAM 2.25 GM in DEXTROSE 5% 50 ML IV SCH ×3 (05:51→20:34)
[2022-12-30 06:06] LABS: LD2 FRACTION 40 % (25-40); LD3 FRACTION 20 % (17-27); LD4 FRACTION 11 % (5-13); LD5 FRACTION 13 % (4-20)
[2022-12-30] MEDS: HYDROCORTISONE NA SUCC 100 MG/2 ML VIAL IV SCH ×3 (06:07→20:33)
[2022-12-30] MEDS: LEVOTHYROXINE SODIUM 100 MCG VIAL IV SCH (06:30)
[2022-12-30] MEDS ORDERED: fentaNYL citrate 0.05 MG/ML VIAL IVP PRN (07:50)
--- NOTE | 2022-12-30 07:50 | NUR ---
Dr EDWARDS rounds at the bedside updates on pt's condition mentioned to MD that during wound care pt's heart rate went up to 150 so order received Fentanyl 25mcg PRN prior to wound care for pt's tolerance/comfort
[2022-12-30] MEDS: PANTOPRAZOLE 40 MG INJ VIAL IVP SCH (08:03)
[2022-12-30] MEDS: MORPHINE SULFATE 2 MG/ML SYR IVP PRN ×2 (08:04→20:45)
[2022-12-30] MEDS: PROPOFOL 1000 MG/100 ML PREMIX 100 ML IV PRN (08:32)
[2022-12-30 08:42] LABS: ALBUMIN 1.9 g/dL (3.4-5.0); ANION GAP 17.1 (8-16); ASPARTATE AMINOTRANSFERASE 51 U/L (15-37); CARBON DIOXIDE 25.2 mmol/L (21-32); CHLORIDE 96 mmol/L (98-107); CREATININE 2.9 mg/dL (0.6-1.3); GLUCOSE 209 mg/dL (74-106); MAGNESIUM 1.7 mg/dL (1.8-2.4); PHOSPHORUS 3.1 mg/dL (2.5-4.9); POTASSIUM 3.3 mmol/L (3.5-5.1); SODIUM SERUM 135 mmol/L (136-145); TOTAL BILIRUBIN 0.6 mg/dL (0.0-1.0); UREA NITROGEN, BLOOD 44 mg/dL (7-18)
[2022-12-30 08:49] LABS: BASOPHILS % (AUTO) 0.1 % (0.0-2.0); EOSINOPHILS % (AUTO) 0.2 % (0.0-4.0); HEMATOCRIT 23.3 % (36-48); HEMOGLOBIN 7.6 g/dL (12.0-16.0); LYMPHOCYTES # (AUTO) 0.4 K/uL (2.5-16.5); LYMPHOCYTES % (AUTO) 2.1 % (20.5-51.1); MEAN CORPUSCULAR HEMOGLOBIN 30 pg (27-31); MEAN CORPUSCULAR HGB CONC 33 g/dL (33-37); MEAN CORPUSCULAR VOLUME 91.3 fL (80-94); MONOCYTES # (AUTO) 0.9 K/uL (0.8-1.0); MONOCYTES % (AUTO) 4.9 % (1.7-9.3); NEUTROPHILS % (AUTO) 92.7 % (42.2-75.2); PLATELET COUNT (AUTO) 125 K/uL (140-450); RED BLOOD CELL COUNT(AUTO) 2.55 MIL/uL (4.20-5.40); RED CELL DISTRIBUTION WIDTH 16.2 % (11.6-13.7); WHITE BLOOD COUNT (AUTO) 18.4 K/uL (4.8-10.8)
--- NOTE | 2022-12-30 10:20 | NUR ---
Rounds with Dr Rolle at the bedside updates on lab order received for Potassium replacement MD also mentioned to further discuss care with family.
--- NOTE | 2022-12-30 10:37 | NUR ---
receiving bedside report at this time b/p 69/ 14 hr 96 rr 33 o2 97 , dr diehl at bedside sted to increase levo and will notify family of pt condition
--- NOTE | 2022-12-30 10:50 | NUR ---
Change of shift assignment give to ALIA RN at the beside went over the drips rate,doses vent settings as at this time no changes in pt';s condition and care plan ongoing Levophed Propofol and Precedex
[2022-12-30] MEDS: MAG SULF 2000 MG/WATER PREMIX 50 ML IV PRN (11:00)
--- NOTE | 2022-12-30 11:15 | NUR ---
DISCUSSED WITH DR ANDERSON PT WAS TO UNSTABLE TO TRY CPAP TODAY. PT WAS TACHY AND RESPIRATIONS WERE HIGH. WILL TRY TOMORROW IF PT IS MORE STABLE.
[2022-12-30] MEDS ORDERED: KCL 20 MEQ IN 100 mL PREMIX 200 ML IV SCH (12:00)
[2022-12-30] MEDS ORDERED: VANCOMYCIN 1,000 MG in DEXTROSE 5% 250 ML IV SCH (12:00)
[2022-12-30] MEDS: THERAHONEY WOUND DRESSING TP SCH (13:00)
[2022-12-30] MEDS: THERAHONEY GEL 42.5 GM TP SCH (13:00)
--- NOTE | 2022-12-30 16:30 | NUR ---
DIALYSIS NURSE INITITATED
--- NOTE | 2022-12-30 17:44 | NUR ---
unable to shipley ETT Gretchen and wilfredo now due to pt receiving dialysis
--- NOTE | 2022-12-30 18:15 | NUR ---
DIALYSIS NURSE CONCERN FOR LOW B/P AND O2 SAT, CALLED RT STATED WILL COME SEE THE PT
--- NOTE | 2022-12-30 18:46 | NUR ---
RESPIRATORY AT BEDSIDE AT THIS TIME
--- NOTE | 2022-12-30 19:30 | NUR ---
RECEIVED REPORT FROM Belkis ANDERSON RN HD GOING ON AT THIS TIME, HR 130-145, RR 30'S, BP 70/39, ON PRECEDEX AND PROPOFOL AND LEVOPHED DRIP AT 11 MCG/MIN. HD MACHINE UF RATE IS 870 ML/HR. TITRATED LEVOPHED DRIP TO 15 MCG/MIN. ASSESSMENT DONE. ANASARCA NOTED. SKIN BOTH UPPER EXTREMITIES OOZING. SKIN TEARS BOTH HANDS BLEEDING. PT IS LETHARGIC, RESPONSIVR TO PAINFUL STIMULI. SKIN COLD AND CLAMMY - PLACED MICHAEL HUGGER ON PT. INTUBATED, ON PC MODE, INCREASED HR, SAT 96-98%. pT TOLERATING OGT FEEDING OF NEPRO AT 25 ML/HR,ASPIRATION AND CONTACT PRECAUTION OBSERVED. RECTAL TUBE AND F/C IN PLACE. NEEDS ATTENDED. CALL LIGHT WITHIN REACH. ST PER MONITOR.
--- NOTE | 2022-12-30 20:00 | NUR ---
HD COM[PLETED, 2L REMOVED. LEVO DRIP TITRATED UP FOR LOW BP. PM CARE RENDERED. CONT TO MONITOR.
[2022-12-31] VITALS (29 sets, daily range): BP systolic 80–135; BP diastolic 36–77
[2022-12-31] MEDS: Z-GUARD PASTE TP SCH ×2 (01:00→13:40)
[2022-12-31] MEDS: HYDRAGUARD CREAM TP SCH ×2 (01:00→13:40)
[2022-12-31] MEDS: DEXMEDETOMIDINE HCL 400 MCG in DEXTROSE 5% 96 ML IV PRN ×3 (01:21→18:40)
[2022-12-31] MEDS: MORPHINE SULFATE 2 MG/ML SYR IVP PRN ×2 (02:03→19:55)
[2022-12-31 05:41] LABS: EOSINOPHILS % (AUTO) 0.1 % (0.0-4.0); HEMATOCRIT 25.1 % (36-48); HEMOGLOBIN 8.1 g/dL (12.0-16.0); LYMPHOCYTES # (AUTO) 0.6 K/uL (2.5-16.5); LYMPHOCYTES % (AUTO) 3.5 % (20.5-51.1); MEAN CORPUSCULAR HEMOGLOBIN 30 pg (27-31); MEAN CORPUSCULAR HGB CONC 32 g/dL (33-37); MEAN CORPUSCULAR VOLUME 91.1 fL (80-94); NEUTROPHILS # (AUTO) 15.6 K/uL (1.8-7.7); NEUTROPHILS % (AUTO) 90.4 % (42.2-75.2); PLATELET COUNT (AUTO) 157 K/uL (140-450); RED BLOOD CELL COUNT(AUTO) 2.76 MIL/uL (4.20-5.40); RED CELL DISTRIBUTION WIDTH 16.1 % (11.6-13.7); WHITE BLOOD COUNT (AUTO) 17.2 K/uL (4.8-10.8)
[2022-12-31] MEDS: PIPERACILLIN/TAZOBACTAM 2.25 GM in DEXTROSE 5% 50 ML IV SCH ×3 (05:51→21:10)
[2022-12-31] MEDS: HYDROCORTISONE NA SUCC 100 MG/2 ML VIAL IV SCH ×3 (05:52→21:09)
[2022-12-31] MEDS: LEVOTHYROXINE SODIUM 100 MCG VIAL IV SCH (05:53)
[2022-12-31] MEDS: PROPOFOL 1000 MG/100 ML PREMIX 100 ML IV PRN ×2 (07:23→20:41)
--- NOTE | 2022-12-31 07:42 | NUR ---
DR BROWN HERE STATED THERES NO BLEED
[2022-12-31] MEDS: PANTOPRAZOLE 40 MG INJ VIAL IVP SCH (09:00)
--- NOTE | 2022-12-31 09:17 | NUR ---
DR DEE CALLED FOR UPDATE
--- NOTE | 2022-12-31 09:26 | NUR ---
DEBI AT BEDSIDE AT THIS TIME
--- NOTE | 2022-12-31 09:57 | NUR ---
RT AT BEDSIDE AT THIS TIME
--- NOTE | 2022-12-31 10:35 | NUR ---
DR ANDERSON STATED FAMILY PROBABLY WANT COMFORT MEASURES, WILL KNOW THIS VIOLETTE. STATED TO DC FLUIDS
[2022-12-31] MEDS: BLOOD GLUCOSE MONITORING 1 DEV DEV FS SCH ×4 (12:00→20:53)
[2022-12-31] MEDS: THERAHONEY WOUND DRESSING TP SCH (13:40)
[2022-12-31] MEDS: THERAHONEY GEL 42.5 GM TP SCH (13:41)
--- NOTE | 2022-12-31 14:00 | NUR ---
JUAN DOMINGO( SISTER IN LAW) CALLED FOR AN UPDATE, STATED LEODAN WILL MAKE A DECISION THIS FRIDAY CONCERNING COMFORT MEASURES
--- NOTE | 2022-12-31 17:02 | NUR ---
12/31/22 RD FOLLOW UP COMPLETED PLEASE REFER TO NUTRITION ASSESSMENT UNDER CARE ACTIVITY FOR ESTIMATED NUTRITIONAL NEEDS. 1. RECOMMEND INCREASING NEPRO CARBSTEADY 1.8 TO GOAL RATE OF 35 ML/HR AND SWITCHING PROSOURCE BID WITH LUANA BID (160 KCAL, 5 GRAMS PROTEIN) TO PROMOTE WOUND HEALING PER RX PROTOCOL -FWF 100 ML Q6H OR PER MD - WITH PROPOFOL AT 7.3 ML/HR (PROVIDES 192 KCAL) AND LUANA BID THIS WILL PROVIDE 840 ML VOLUME, 1864 KCAL, & 73 GRAMS PROTEIN, THIS WILL MEET 100% OF ESTIMATED KCAL AND PROTEIN NEEDS; ADEQUATE 2.MONITOR GI SYMPTOMS, GASTRIC RESIDUALS, AND NUTRITION RELATED LAB VALUES 3. CONSULT RD PRN 4. RD TO FOLLOW-UP 2-3 DAYS, HIGH RISK REVIEWED BY TWIN CURTIS RD
--- NOTE | 2022-12-31 19:20 | NUR ---
SBAR TO ALBARO(MORGAN)
[2023-01-01] VITALS (30 sets, daily range): BP systolic 87–139; BP diastolic 29–64
[2023-01-01] MEDS: HYDRAGUARD CREAM TP SCH ×2 (01:00→15:00)
[2023-01-01] MEDS: Z-GUARD PASTE TP SCH ×2 (01:00→15:00)
[2023-01-01] MEDS: DEXMEDETOMIDINE HCL 400 MCG in DEXTROSE 5% 96 ML IV PRN ×2 (04:42→10:28)
[2023-01-01] MEDS: HYDROCORTISONE NA SUCC 100 MG/2 ML VIAL IV SCH ×3 (05:22→21:20)
[2023-01-01] MEDS: PIPERACILLIN/TAZOBACTAM 2.25 GM in DEXTROSE 5% 50 ML IV SCH ×3 (05:23→21:20)
[2023-01-01] MEDS: INSULIN LISPRO SLIDING SCALE 100 UNITS/ML VIAL SUBQ PRN ×4 (05:45→23:34)
[2023-01-01] MEDS: BLOOD GLUCOSE MONITORING 1 DEV DEV FS SCH ×6 (05:52→23:36)
--- NOTE | 2023-01-01 07:15 | NUR ---
RECEIVED BEDSIDE REPORT FROM [facility], CHAIN SAW MECHANIC FINANCIAL RECORDING CLERK, FOR CONTINUITY OF CARE. PT SEDATED, PUPILS BRISK RXN TO LIGHT, 3 MM. ETT TO VENT AC/PC FIO2 30%, RR 24, [address] ON MONITOR. PICC TO JAQUELINE INFUSING LEVOPHED AT 14 MCG/MIN, PROPOFOL AT 10 MCG/KG/MIN, PRECEDEX AT 0.3 MCG/KG/HR, AND NS TKO. OGT IN PLACE TO TUBE FEEDING NEPRO 25 ML/HR WITH FWF 100 Q6H. F/C TO GRAVITY. HD ACCESS TO RIJ. SEVERE GENERALIZED EDEMA, NONPITTING. HEEL PROTECTOR BOOTS IN PLACE FOR SKIN BREAKDOWN PROPHYLAXIS. MICHAEL HUGGER IN PLACE. GENERALIZED WEAKNESS. HOB 30 DEGREES FOR ASPIRATION PRECAUTION. CONTACT PRECAUTION FOR CDIFF. BED LOCKED AND IN LOWEST POSITION.
[2023-01-01] MEDS: PANTOPRAZOLE 40 MG INJ VIAL IVP SCH (08:11)
[2023-01-01 08:51] LABS: HEMATOCRIT 22.5 % (36-48); HEMOGLOBIN 7.4 g/dL (12.0-16.0); MEAN CORPUSCULAR HEMOGLOBIN 30 pg (27-31); MEAN CORPUSCULAR HGB CONC 33 g/dL (33-37); MEAN CORPUSCULAR VOLUME 91.3 fL (80-94); PLATELET COUNT (AUTO) 196 K/uL (140-450); RED BLOOD CELL COUNT(AUTO) 2.46 MIL/uL (4.20-5.40); RED CELL DISTRIBUTION WIDTH 16.2 % (11.6-13.7); WHITE BLOOD COUNT (AUTO) 22.2 K/uL (4.8-10.8)
[2023-01-01 08:59] LABS: ANION GAP 15.7 (8-16); CARBON DIOXIDE 24.9 mmol/L (21-32); CHLORIDE 91 mmol/L (98-107); CREATININE 3.7 mg/dL (0.6-1.3); GLUCOSE 391 mg/dL (74-106); POTASSIUM 3.6 mmol/L (3.5-5.1); SODIUM SERUM 128 mmol/L (136-145); UREA NITROGEN, BLOOD 57 mg/dL (7-18)
[2023-01-01 09:03] LABS: PHOSPHORUS 5.2 mg/dL (2.5-4.9)
[2023-01-01 09:10] LABS: LYMPHOCYTES % (MANUAL) 4 % (20-46); MONOCYTES % (MANUAL) 8 % (5-12); PROMYELOCYTES % 1 % (0-0)
[2023-01-01] MEDS: PROPOFOL 1000 MG/100 ML PREMIX 100 ML IV PRN ×2 (10:19→18:58)
[2023-01-01] MEDS: INSULIN LANTUS 100 UNITS/ML 10 ML VIAL SUBQ SCH (11:08)
[2023-01-01] MEDS ORDERED: ALBUMIN HUMAN 25% 100 ML IV ONE (11:13)
[2023-01-01] MEDS: LEVOTHYROXINE SODIUM 100 MCG VIAL IV SCH (11:32)
[2023-01-01] MEDS ORDERED: ALBUMIN HUMAN 25% 100 ML IV SCH (12:00)
[2023-01-01] MEDS: THERAHONEY GEL 42.5 GM TP SCH (13:00)
[2023-01-01] MEDS: THERAHONEY WOUND DRESSING TP SCH (13:00)
--- NOTE | 2023-01-01 14:20 | NUR ---
PT HAD EKG CHANGES, ORDERED STAT EKG, SEE PAPER CHART.
--- NOTE | 2023-01-01 15:10 | NUR ---
NOTIFIED DR ANDERSON OF EKG CHANGES, NO NEW ORDERS.
--- NOTE | 2023-01-01 19:20 | NUR ---
ENDORSED BEDSIDE REPORT TO SOLID WASTE DISPOSAL MANAGER RN PEPPI FOR CONTINUITY OF CARE.
--- NOTE | 2023-01-01 19:30 | NUR ---
REPORT RECEIVED FROM OUTGOING AM MORGAN MCKEON. PT ON BED - INTUBATED, SEDATED, TOLERATING CURRENT VENT SETTING. ASSESSMENT DOME. OGR IN PLACE, TOLERATING NEPRO FEEDING AT 25 ML/HR, HOB UP FOR ASPIRATION PRECAUTION. ON PRECEDEX, PROPOFOL AND LEVOPHED DRIPS VIA PICC RIGHT UPPER ARM DRESSING INTACT, CLEAN AND DRY. GEN SWELLING NOTED. SKIN BOTH UPPER EXTREMITIES OOZING, PATCHES OF SKIN DISCOLORATION NOTED BUE. F/C AND RECTAL TUBES IN PLACE. REPOSITIONED COMFORTABLY, SUPPORTED WITH PILLOWS. ORAL CARE RENDERED, SECRETIONS SUCTIONED PRN. ST PER MONITOR. AFEBRILE. CONT TO MONITOR.
--- NOTE | 2023-01-01 20:00 | NUR ---
SAT 100% FIO2 CHANGED TO 40% BY RT. CONT TO MONITOR
--- NOTE | 2023-01-01 21:45 | NUR ---
ABRUPT DECREASE IN HR AND RHYTHM CHANGE NOTED, REPORTED TO DR. JOHNSON, ORDERED STAT EKG, RESULT REPORTED TO DR. JOHNSON, NO NEW ORDER GIVEN AT THIS TIME. CONT TO MONITOR.
[2023-01-02] VITALS (30 sets, daily range): BP systolic 80–151; BP diastolic 33–81
[2023-01-02] MEDS: HYDRAGUARD CREAM TP SCH ×2 (01:00→12:13)
[2023-01-02] MEDS: Z-GUARD PASTE TP SCH ×2 (01:00→12:14)
[2023-01-02] MEDS: MORPHINE SULFATE 2 MG/ML SYR IVP PRN ×2 (01:54→20:41)
[2023-01-02] MEDS: HYDROCORTISONE NA SUCC 100 MG/2 ML VIAL IV SCH ×3 (05:00→20:22)
[2023-01-02] MEDS: PIPERACILLIN/TAZOBACTAM 2.25 GM in DEXTROSE 5% 50 ML IV SCH ×3 (05:00→20:21)
[2023-01-02] MEDS: INSULIN LISPRO SLIDING SCALE 100 UNITS/ML VIAL SUBQ PRN ×3 (06:50→17:20)
[2023-01-02] MEDS: LEVOTHYROXINE SODIUM 100 MCG VIAL IV SCH (06:53)
[2023-01-02] MEDS: BLOOD GLUCOSE MONITORING 1 DEV DEV FS SCH ×3 (06:54→17:19)
--- NOTE | 2023-01-02 07:17 | NUR ---
REPORT GIVEN TO INCOMING AM NURSES ADZE/VEL. GEN CONDITION CRITICAL.
--- NOTE | 2023-01-02 07:30 | NUR ---
RECEIVED REPORT FROM NIGHTSHIFT NURSE AND SHE ALREADY CONTACTED MD REGARDING ELEVATED HR WITH NO NEW ORDERS. RT AT BEDSIDE. ETT TO VENT, FIO2 @ 40%, RR 24, PEEP 5. O2 SATURATION @ 98%. OG TUBE. JAQUELINE PICC TRIPLE LUMEN. LEVOPHED, PRECEDEX, PROPOFOL AND SODIUM BICARB INFUSING. CASSANDRA PERERA DRESSING C/D/I. CARIAS BAG WITH NO URINE OUTPUT. SEVERE EDEMA THROUGHOUT. NEEDS ALL MET AT THIS TIME. ALL SAFETY MEASURES IN PLACE.
[2023-01-02] MEDS: DEXMEDETOMIDINE HCL 400 MCG in DEXTROSE 5% 96 ML IV PRN ×4 (08:50→20:47)
[2023-01-02] MEDS: PROPOFOL 1000 MG/100 ML PREMIX 100 ML IV PRN ×3 (08:56→20:49)
[2023-01-02] MEDS: INSULIN LANTUS 100 UNITS/ML 10 ML VIAL SUBQ SCH (09:06)
[2023-01-02] MEDS: PANTOPRAZOLE 40 MG INJ VIAL IVP SCH (09:07)
[2023-01-02] MEDS: NOREPINEPHRINE 16 MG in DEXTROSE 5% 250 ML IV PRN ×2 (09:50→16:13)
--- NOTE | 2023-01-02 11:15 | NUR ---
PT DID NOT TOLERATE SBT CPAP 5 PS 15 AND FIO2 INCREASED TO 45% DUE TO LOW SPO2 DURING SBT. PT RR INCREASED TO MID 30'S AND VT ONLY RANGING FROM 210-240. NURSE BEDSIDE AWARE OF TRIAL. PT RETURNED TO FULL SUPPORT VENTILATION. PT DID NOT FOLLOW COMMANDS OFF OF SEDATION.
[2023-01-02] MEDS: THERAHONEY GEL 42.5 GM TP SCH (12:13)
[2023-01-02] MEDS: THERAHONEY WOUND DRESSING TP SCH (12:14)
[2023-01-02] MEDS: IPRATROPIUM 0.02% 0.5 MG/2.5 ML NEBU INH PRN (12:15)
--- NOTE | 2023-01-02 16:13 | NUR ---
NEW LEVOPHED BAG HUNG D/T PREVIOUS LEVOPHED EXPIRING SOON. SAME RATE.
--- NOTE | 2023-01-02 17:04 | NUR ---
01/02/23 RD FOLLOW UP COMPLETED PLEASE REFER TO NUTRITION ASSESSMENT UNDER CARE ACTIVITY FOR ESTIMATED NUTRITIONAL NEEDS. 1. RECOMMEND INCREASING RATE TO NEPRO CARBSTEADY 1.8 @ 30 ML/HR, FWF 100 ML Q6H OR PER MD 2. CONTINUE LUANA BID (160 KCAL, 5 GRAMS PROTEIN) TO PROMOTE WOUND HEALING PER RX PROTOCOL - WITH PROPOFOL AT 18.234 ML/HR (PROVIDES 481 KCAL) AND LUANA BID, PT WILL RECEIVE 720 ML TOTAL VOLUME, 1777 KCAL, 58 GRAMS PROTEIN, 923 ML FREE WATER, MEETING 100% ESTIMATED KCAL AND 89% ESTIMATED PROTEIN NEEDS; ADEQUATE 3. MONITOR GASTRIC RESIDUALS, AND LAB VALUES. 4. RD TO FOLLOW-UP 3-5 DAYS, MODERATE RISK REVIEWED BY CASANDRA CURTIS RD Addendum: 01/03/23 at [address] PER RN: THE PATIENT'S FAMILY DECIDED TO MAKE PATIENT DNR AND PT ON COMFORT MEASURES ONLY AT THIS TIME WILL DISCONTINUE NUTRITION ASSESSMENTS AND FOLLOW UPS RD WILL REMAIN AVAILABLE FOR CONSULTS NEEDS AND WILL RESTART NUTRITION ASSESSMENT IF REQUESTED CASANDRA CURTIS RD
--- NOTE | 2023-01-02 18:33 | NUR ---
FIO2 30% WITH O2 SATURATION BETWEEN 88-91%. CONTACTED RT. PT TOLERATING OG TUBE FEEDING. 3 ML RESIDUAL. RATE @ 30 ML/HR WITH WATER FLUSH @ 100 ML/Q6H. HOB ELEVATED. RECTAL TUBE VIA GRAVITY. CARIAS IN PLACE. NEEDS ALL MET AT THIS TIME. ALL SAFETY MEASURES IN PLACE.
--- NOTE | 2023-01-02 19:14 | NUR ---
RT AT BEDSIDE AND CHANGED FIO2 TO 35%. REPORT GIVEN TO NIGHTSHIFT NURSE FOR CONTINUITY OF CARE.
--- NOTE | 2023-01-02 19:22 | NUR ---
Assumed pt care bedside report received from VEL MORA pt was fully sedated unable to follow command no movements in all extremities to pain and tactile stimulus. Vitals signs stable still Levophed drip low grade temp 96.7 F so bear hugger applied for comfort. OGT in place placement checked verified by auscultation residual less than 10 cc, marin to gravity very low urine output, oral care done airway clearance via ETT suction non sign of distress noted. Generalized edema weeping on both upper extremities, education on care plan but pt unable to comprehend as at tgis time will continue to monitor and treat as per care plan .
[2023-01-03] VITALS (22 sets, daily range): BP systolic 0–160; BP diastolic 22–70
[2023-01-03] MEDS: BLOOD GLUCOSE MONITORING 1 DEV DEV FS SCH ×3 (00:46→11:59)
[2023-01-03] MEDS: PROPOFOL 1000 MG/100 ML PREMIX 100 ML IV PRN ×2 (00:50→06:31)
[2023-01-03] MEDS: INSULIN LISPRO SLIDING SCALE 100 UNITS/ML VIAL SUBQ PRN (00:51)
[2023-01-03] MEDS: DEXMEDETOMIDINE HCL 400 MCG in DEXTROSE 5% 96 ML IV PRN ×3 (00:54→11:32)
[2023-01-03] MEDS: Z-GUARD PASTE TP SCH ×2 (01:08→12:07)
[2023-01-03] MEDS: HYDRAGUARD CREAM TP SCH ×2 (01:08→13:55)
--- NOTE | 2023-01-03 04:50 | NUR ---
Complete bed bath with Linen changed wound care pt tolerated well Fentanyl 25mcg given prior to care vitals signs stable, 3 persons assistance and pt repositioned for comfort.
[2023-01-03] MEDS: PIPERACILLIN/TAZOBACTAM 2.25 GM in DEXTROSE 5% 50 ML IV SCH (05:38)
[2023-01-03] MEDS: HYDROCORTISONE NA SUCC 100 MG/2 ML VIAL IV SCH (05:38)
[2023-01-03 06:01] LABS: BASOPHILS % (AUTO) 0.1 % (0.0-2.0); EOSINOPHILS % (AUTO) 0.2 % (0.0-4.0); LYMPHOCYTES # (AUTO) 1.1 K/uL (2.5-16.5); LYMPHOCYTES % (AUTO) 7.8 % (20.5-51.1); MEAN CORPUSCULAR HEMOGLOBIN 30 pg (27-31); MEAN CORPUSCULAR HGB CONC 32 g/dL (33-37); MEAN CORPUSCULAR VOLUME 91.8 fL (80-94); MONOCYTES # (AUTO) 1.1 K/uL (0.8-1.0); MONOCYTES % (AUTO) 7.9 % (1.7-9.3); NEUTROPHILS # (AUTO) 11.8 K/uL (1.8-7.7); PLATELET COUNT (AUTO) 187 K/uL (140-450); RED BLOOD CELL COUNT(AUTO) 2.04 MIL/uL (4.20-5.40); RED CELL DISTRIBUTION WIDTH 16.1 % (11.6-13.7); WHITE BLOOD COUNT (AUTO) 14.1 K/uL (4.8-10.8)
[2023-01-03 06:02] LABS: HEMOGLOBIN 6.1 g/dL (12.0-16.0)
[2023-01-03 06:03] LABS: HEMATOCRIT 18.8 % (36-48)
[2023-01-03 06:14] LABS: ANION GAP 11.8 (8-16); CARBON DIOXIDE 28.9 mmol/L (21-32); CHLORIDE 89 mmol/L (98-107); CREATININE 3.3 mg/dL (0.6-1.3); GLUCOSE 254 mg/dL (74-106); POTASSIUM 3.7 mmol/L (3.5-5.1); SODIUM SERUM 126 mmol/L (136-145); UREA NITROGEN, BLOOD 55 mg/dL (7-18)
[2023-01-03] MEDS: LEVOTHYROXINE SODIUM 100 MCG VIAL IV SCH (06:27)
[2023-01-03 06:31] LABS: PHOSPHORUS 4.6 mg/dL (2.5-4.9)
--- NOTE | 2023-01-03 07:16 | NUR ---
Bedside report given to JERARDO RN for continuity of carre, went over vent settings, all the drips rate and indications Levophed, Precedex, Propofol as at this time pt's vitals signs stable sedated ETT to vent tolerating well
--- NOTE | 2023-01-03 07:24 | NUR ---
Critical lab value HGB 6.1 HCT 18.8, NA 126 Dr JOHNSON and Dr Sol notified order received from Dr Johnson to transfuse 1 unit PRBC also JERARDO RN updated to follow up with the order as at this time pt's vitals signs stable and no changes in pt's condition
--- NOTE | 2023-01-03 07:30 | NUR ---
RECEIVED PT ON PC 30,F24, +5,35%. VENT WHEELS ARE LOCKED, PLUGGED INTO RED OUTLET, AMBUBAG AT BEDSIDE, ALARMS ARE SET AND AUDIBLE. DAILY CPAP SCHEDULED FOR THIS MORNING. NO DISTRESS NOTED. WILL CONTINUE TO MONITOR.
--- NOTE | 2023-01-03 07:40 | NUR ---
Dr Sol called back updates on pt's critical lab values, ongoing tx and vitals signs. said he will be here lated to assess pt and treat.
--- NOTE | 2023-01-03 07:55 | NUR ---
PT DID NOT TOLERATE CPAP TRIAL 03/03. LOW VOLUMES 200-300. DOES NOT FOLLOW COMMANDS. RETUNED TO FULL VENT SUPPORT. WILL CONTINUE TO MONITOR.
[2023-01-03] MEDS: INSULIN LANTUS 100 UNITS/ML 10 ML VIAL SUBQ SCH (09:21)
[2023-01-03] MEDS: PANTOPRAZOLE 40 MG INJ VIAL IVP SCH (09:22)
[2023-01-03] MEDS ORDERED: ALBUMIN HUMAN 25% 100 ML IV ONE (10:58)
[2023-01-03] MEDS: NOREPINEPHRINE 16 MG in DEXTROSE 5% 250 ML IV PRN (12:07)
[2023-01-03] MEDS ORDERED: MORPHINE SULFATE 100 MG in NACL 0.9% 90 ML IV PRN (13:30)
[2023-01-03] MEDS: THERAHONEY GEL 42.5 GM TP SCH (13:55)
[2023-01-03] MEDS: THERAHONEY WOUND DRESSING TP SCH (13:56)
--- NOTE | 2023-01-03 14:01 | NUR ---
blood transfusion was done by HD nurse through HD machine, pt tolerated well. and MD Monique at bedside and update to family and agree comfort care only. awaiting MS gtt from pharmacy.
--- NOTE | 2023-01-03 18:20 | NUR ---
COMFORT CARE EXTUBATION. PT CURRENTLY ON 3L NASAL CANNULA.
--- NOTE | 2023-01-03 19:25 | NUR ---
Report received from Ron MORA tat pt at 1838 post terminal extubation as per MD's order, pt's family, [employer], primary physiscian already notified as at this time no sign of life noted no breathing, no heart rate n te monitor no body movement and no blood pressure.
--- NOTE | 2023-01-03 19:25 | NUR ---
@192 night warehouse manager office notified about pt's spoke to Augustina perry call back from . Addendum: 01/03/23 at 2136 by Agency 02 MORGAN RN @1951 doughnut fryer offoice notified
--- NOTE | 2023-01-03 19:40 | NUR ---
Vicky Cobb pt's niece called gave information about the mortuary [facility] [phone]
--- NOTE | 2023-01-03 19:43 | NUR ---
Called Anh Jeffries all pertinent information given to Indra and he responded that information will be forwarded for pt's body to be picked up later.
--- NOTE | 2023-01-03 20:20 | NUR ---
Deputy Caicedo from in classroom tutor's office called back all information given about pt's conditoin on admission, treatment received diagnosis mentioned that pt was terminally extubated also DNR and family aware of pt's . Body was released by Cush[facility] [employer]uffer no case.
--- NOTE | 2023-01-03 20:50 | NUR ---
Post mortem care done done family are not present in the hospital body awaiting meat pickler by mortuary
--- NOTE | 2023-01-03 23:25 | NUR ---
PT's body picked up by reps from mortuary released signed by 2 RNS this NR and devulcanizer charger on the unt no personal belongings and no family present as at this time.
== END 2023-01-03 18:38 | DRG 853 ==
LOC: MED 18:37 → MTU 23:15 → MIC 12-21 10:25
PROVIDERS: ADMIT Family Medicine; ATTEND Family Medicine
PROC: 5A09357 Assistance with Respiratory Ventilation, Less than 24 Consecutive Hours, Continuous Positive Airway Pressure (ICD-10-PCS; 2022-12-21)
PROC: 5A09357 Assistance with Respiratory Ventilation, Less than 24 Consecutive Hours, Continuous Positive Airway Pressure (ICD-10-PCS; 2022-12-22)
PROC: 5A09357 Assistance with Respiratory Ventilation, Less than 24 Consecutive Hours, Continuous Positive Airway Pressure (ICD-10-PCS; 2022-12-23)
PROC: 02HV33Z Insertion of Infusion Device into Superior Vena Cava, Percutaneous Approach (ICD-10-PCS; 2022-12-24)
PROC: B548ZZA Ultrasonography of Superior Vena Cava, Guidance (ICD-10-PCS; 2022-12-24)
PROC: 5A1D70Z Performance of Urinary Filtration, Intermittent, Less than 6 Hours Per Day (ICD-10-PCS; 2022-12-24)
PROC: 5A09357 Assistance with Respiratory Ventilation, Less than 24 Consecutive Hours, Continuous Positive Airway Pressure (ICD-10-PCS; 2022-12-24)
PROC: 0JB70ZZ Excision of Back Subcutaneous Tissue and Fascia, Open Approach (ICD-10-PCS; principal; 2022-12-24 21:30)
PROC: 5A1955Z Respiratory Ventilation, Greater than 96 Consecutive Hours (ICD-10-PCS; 2022-12-25)
PROC: 0BH17EZ Insertion of Endotracheal Airway into Trachea, Via Natural or Artificial Opening (ICD-10-PCS; 2022-12-25)
PROC: 5A1D70Z Performance of Urinary Filtration, Intermittent, Less than 6 Hours Per Day (ICD-10-PCS; 2022-12-25)
PROC: 5A09357 Assistance with Respiratory Ventilation, Less than 24 Consecutive Hours, Continuous Positive Airway Pressure (ICD-10-PCS; 2022-12-25)
PROC: 5A1D70Z Performance of Urinary Filtration, Intermittent, Less than 6 Hours Per Day (ICD-10-PCS; 2022-12-26)
PROC: 0W993ZZ Drainage of Right Pleural Cavity, Percutaneous Approach (ICD-10-PCS; 2022-12-27)
PROC: 5A1D70Z Performance of Urinary Filtration, Intermittent, Less than 6 Hours Per Day (ICD-10-PCS; 2022-12-27)
PROC: 5A1D70Z Performance of Urinary Filtration, Intermittent, Less than 6 Hours Per Day (ICD-10-PCS; 2022-12-29)
PROC: 5A1D70Z Performance of Urinary Filtration, Intermittent, Less than 6 Hours Per Day (ICD-10-PCS; 2022-12-30)
PROC: 5A1D70Z Performance of Urinary Filtration, Intermittent, Less than 6 Hours Per Day (ICD-10-PCS; 2022-12-31)
PROC: 30233N1 Transfusion of Nonautologous Red Blood Cells into Peripheral Vein, Percutaneous Approach (ICD-10-PCS; 2023-01-03)
DX: A41.9 Sepsis, unspecified organism (principal); E43 Unspecified severe protein-calorie malnutrition; J96.01 Acute respiratory failure with hypoxia; J18.9 Pneumonia, unspecified organism; R65.21 Severe sepsis with septic shock; N17.0 Acute kidney failure with tubular necrosis; N39.0 Urinary tract infection, site not specified; E11.52 Type 2 diabetes mellitus with diabetic peripheral angiopathy with gangrene; J44.0 Chronic obstructive pulmonary disease with (acute) lower respiratory infection; J90 Pleural effusion, not elsewhere classified; G93.40 Encephalopathy, unspecified; Z68.42 Body mass index [BMI] 45.0-49.9, adult; L89.150 Pressure ulcer of sacral region, unstageable; E03.9 Hypothyroidism, unspecified; D64.9 Anemia, unspecified; B96.20 Unspecified Escherichia coli [E. coli] as the cause of diseases classified elsewhere; Z20.822 Contact with and (suspected) exposure to COVID-19; I12.9 Hypertensive chronic kidney disease with stage 1 through stage 4 chronic kidney disease, or unspecified chronic kidney disease; E11.22 Type 2 diabetes mellitus with diabetic chronic kidney disease; N18.9 Chronic kidney disease, unspecified; E66.9 Obesity, unspecified; Z87.891 Personal history of nicotine dependence; Z99.2 Dependence on renal dialysis; Z82.3 Family history of stroke; Z83.3 Family history of diabetes mellitus
CPT/HCPCS: 31500; 36415; 36600; 70450; 71045; 72125; 72131; 74018; 76604; 76770; 76942; 80048; 80053; 80202; 80305; 81001; 82436; 82550; 82553; 82575; 82803; 82945; 82948; 83605; 83615; 83625; 83735; 84100; 84157; 84300; 84439; 84443; 84484; 85025; 85049; 85610; 85730; 86886; 86900; 86901; 86920; 87040; 87070; 87075; 87086; 87186; 87205; 88304; 89051; 90935; 93005; 93970; 94002; 94003; 94640; 94660; 96361; 96365; 99291; C9113; G0480; G0482; J0456; J0696; J1644; J1720; J1815; J2001; J2250; J2270; J2370; J2543; J2704; J2997; J3010; J3370; J3372; J3475; J3480; J3490; J7030; J7060; J7613; J7644; P9016; P9046; Q0092